=== PATIENT | female | born 1935 | race Caucasian/White ===

== ENCOUNTER 2016-03-13 23:08 | Inpatient (IN) | payer MEDICARE, OTHER ==
[~2016-03-13] VITALS: Ht 167.6 cm; Wt 64.4 kg
[~2016-03-13 23:08] MED LIST: BUSP5TAB3 PO; CALC-513 PO; CLON0.5T4 PO; CRAN1TAB3 PO; DEXT1CAP3 PO; DIGO125T PO; DILT30TA2 PO; DOCU-25 PO; DONE10TA44 PO; ERGO50003 PO; FOLI1TAB16 PO; HYDR-552 PO; LOVA20TA2 PO; MAGN400O6 PO; MEMA10TA PO; METO25TA6 PO; PANT40TA2 PO; QUET25TA PO; RIVA10TA PO
[2016-03-14 00:20] LABS: BASOPHILS % (AUTO) 0.3 % (0.0-2.0); DIFF TOTAL % 100 %; EOSINOPHILS # (AUTO) 0.1 /CMM (0.0-0.7); EOSINOPHILS % (AUTO) 1.1 % (0.0-6.0); HEMATOCRIT 51 % (33-45); HEMOGLOBIN 16.8 g/dL (11.5-14.8); LYMPHOCYTES % (AUTO) 20.1 % (20.0-44.0); MEAN CORPUSCULAR HEMOGLOBIN 32 PG (26.0-33.0); MEAN CORPUSCULAR HGB CONC 33 g/dl (31.0-36.0); MEAN CORPUSCULAR VOLUME 98 fL (82-100); MONOCYTES # (AUTO) 0.8 /CMM (0.1-1.30); MONOCYTES % (AUTO) 8.5 % (2.0-12.0); PLATELET COUNT (AUTO) 153 /CMM (150-450); RED BLOOD CELL COUNT(AUTO) 5.18 MIL/uL (4.0-5.2)
[2016-03-14 00:29] LABS: CALCIUM, SERUM 9.2 mg/dL (8.5-10.1); CREATININE 0.9 mg/dL (0.6-1.3); POTASSIUM 4.5 mmol/L (3.5-5.1)
[2016-03-14 00:37] LABS: TROPONIN I 0.024 ng/mL (0.00-0.056)
[2016-03-14 00:44] LABS: INR 1.05 (0.87-1.13); PROTHROMBIN TIME 11.3 SECS (9.5-12.7)
[2016-03-14 01:41] LABS: KETONES,URINE NEGATIVE (NEGATIVE); LEUKOCYTE ESTERASE ,URINE 1+ (NEGATIVE)
[2016-03-14 01:46] LABS: ADD UA MICROSCOPIC YES
[2016-03-14 01:47] LABS: ADD URINE CULTURE YES; RBC,URINE 0-2 /HPF (0-2)
[2016-03-14] MEDS ORDERED: CEFTRIAXONE 1GM BAG (ER ONLY) 1 GM/50 ML PIGGYBACK IV ONE (02:00)
[2016-03-14] MEDS ORDERED: RISP0.5T2 PO (02:02)
[2016-03-14] MEDS ORDERED: ATOR10TA PO (02:02)
[2016-03-14] MEDS ORDERED: LOSA25TA13 PO (02:02)
[2016-03-14] MEDS ORDERED: FAMO40TA7 PO ×2 (02:02→08:43)
[2016-03-14] MEDS ORDERED: CARV6.25 PO (02:02)
[2016-03-14] MEDS ORDERED: ASPI-991 PO (02:02)
[2016-03-14] MEDS ORDERED: CEFTRIAXONE 1GM BAG (ER ONLY) 50 ML IV ONE (02:12)
[2016-03-14] MEDS ORDERED: IV SET PRIMARY 1 EA INFUS.SET MC ONE (02:12)
[2016-03-14] MEDS ORDERED: IV NS 0.9% 1,000 ML BAG IV SCH (04:00)
[2016-03-14] MEDS ORDERED: LEVOFLOXACIN 750 MG /D5W 150ML 750 MG in PREMIX 1 EA IV SCH (04:00)
[2016-03-14 04:14] VITALS: BP 159/75
[2016-03-14] MEDS ORDERED: LEVOFLOXACIN 750 MG /D5W 150ML 150 ML IV ONE (04:52)
[2016-03-14] MEDS ORDERED: IV SET PRIMARY PUMP SET 1 EA INFUS.SET MC ONE (05:00)
[2016-03-14] MEDS ORDERED: IV NS 0.9% 1,000 ML ONE (05:00)
[2016-03-14] MEDS ORDERED: SECONDARY IV SET 1 EA INFUS.SET MC ONE ×2 (05:00→10:52)
[2016-03-14 06:56] VITALS: BP 115/81
[2016-03-14 07:04] LABS: CALCIUM, SERUM 8.9 mg/dL (8.5-10.1); CREATININE 0.8 mg/dL (0.6-1.3); PHOSPHORUS 4.3 mg/dL (2.5-4.9); POTASSIUM 3.8 mmol/L (3.5-5.1)
[2016-03-14 07:15] LABS: BASOPHILS % (AUTO) 0.5 % (0.0-2.0); EOSINOPHILS # (AUTO) 0.1 /CMM (0.0-0.7); EOSINOPHILS % (AUTO) 1.2 % (0.0-6.0); HEMATOCRIT 49 % (33-45); HEMOGLOBIN 16.2 g/dL (11.5-14.8); LYMPHOCYTES % (AUTO) 24.1 % (20.0-44.0); MEAN CORPUSCULAR HEMOGLOBIN 32 PG (26.0-33.0); MEAN CORPUSCULAR HGB CONC 33 g/dl (31.0-36.0); MEAN CORPUSCULAR VOLUME 99 fL (82-100); MONOCYTES # (AUTO) 0.9 /CMM (0.1-1.30); MONOCYTES % (AUTO) 10.7 % (2.0-12.0); NEUTROPHILS # (AUTO) 5.3 /CMM (1.8-8.9); NEUTROPHILS % (AUTO) 63.5 % (43.0-81.0); PLATELET COUNT (AUTO) 133 /CMM (150-450); RED BLOOD CELL COUNT(AUTO) 4.99 MIL/uL (4.0-5.2); WHITE BLOOD COUNT (AUTO) 8.3 K/uL (4.3-11.0)
[2016-03-14 08:00] VITALS: BP 136/98
[2016-03-14] MEDS ORDERED: RISP0.2515 PO (08:43)
[2016-03-14] MEDS ORDERED: Z GUARD REMEDY 2 OZ OINT TP PRN (09:00)
[2016-03-14] MEDS: PANTOPRAZOLE 40 MG TABLET.DR PO SCH (09:14)
[2016-03-14] MEDS: IV NS 0.9% 1,000 ML IV PRN (09:24)
[2016-03-14] MEDS: DOCUSATE SODIUM 100 MG CAPSULE PO SCH ×2 (09:54→16:03)
[2016-03-14] MEDS: CARVEDILOL 6.25 MG TABLET PO SCH ×2 (09:54→16:03)
[2016-03-14] MEDS: busPIRone 5 MG TABLET PO SCH ×2 (09:54→16:04)
[2016-03-14] MEDS: FOLIC ACID 1 MG TABLET PO SCH (09:54)
[2016-03-14] MEDS: clonazePAM 0.5 MG TABLET PO SCH ×3 (09:54→17:19)
[2016-03-14] MEDS: LOSARTAN POTASSIUM 25 MG TABLET PO SCH (09:54)
[2016-03-14] MEDS ORDERED: ASPIRIN EC 81 MG TABLET.DR PO SCH (10:00)
[2016-03-14] MEDS: MEMANTINE HCL 5 MG TABLET PO SCH ×2 (10:16→16:04)
[2016-03-14] MEDS: risperiDONE 0.25 MG TABLET PO SCH ×3 (10:16→17:19)
[2016-03-14] MEDS ORDERED: ONDANSETRON HCL/PF 4 MG/2 ML VIAL IV PRN (10:30)
[2016-03-14] MEDS ORDERED: ACETAMINOPHEN 325 MG TABLET PO PRN (10:30)
[2016-03-14] MEDS ORDERED: HYDROCODONE/APAP 5/325MG 1 EACH TABLET PO PRN (10:30)
[2016-03-14] MEDS: Magnesium 1GM/D5W 100ML PREMIX 100 ML IV SCH ×2 (10:55→12:02)
[2016-03-14] MEDS: ASPIRIN EC 81 MG TABLET.DR PO SCH (11:35)
[2016-03-14] MEDS: ENOXAPARIN SODIUM 40 MG/0.4 ML DISP.SYRIN SQ SCH (11:35)
[2016-03-14 12:00] VITALS: BP 145/69
[2016-03-14] MEDS: DIGOXIN 0.125 MG TABLET PO SCH (13:11)
[2016-03-14 16:00] VITALS: BP 139/84
[2016-03-14 20:00] VITALS: BP 145/93
[2016-03-14] MEDS: DONEPEZIL 5 MG TABLET PO SCH (21:32)
[2016-03-14] MEDS: ATORVASTATIN 10 MG TABLET PO SCH (21:32)
[2016-03-15] VITALS: BP 140/76
[2016-03-15] MEDS: IV NS 0.9% 1,000 ML IV PRN (01:01)
[2016-03-15 04:02] VITALS: BP 140/76
[2016-03-15] MEDS: CEFTRIAXONE 1 G in IV D5W 50 ML IV SCH (04:54)
[2016-03-15 08:00] VITALS: BP 144/78
[2016-03-15 08:29] LABS: BASOPHILS % (AUTO) 0.3 % (0.0-2.0); DIFF TOTAL % 100 %; EOSINOPHILS # (AUTO) 0.1 /CMM (0.0-0.7); EOSINOPHILS % (AUTO) 1.5 % (0.0-6.0); HEMATOCRIT 45 % (33-45); HEMOGLOBIN 14.7 g/dL (11.5-14.8); LYMPHOCYTES # (AUTO) 1.7 /CMM (0.8-4.8); LYMPHOCYTES % (AUTO) 25.1 % (20.0-44.0); MEAN CORPUSCULAR HEMOGLOBIN 32 PG (26.0-33.0); MEAN CORPUSCULAR HGB CONC 33 g/dl (31.0-36.0); MEAN CORPUSCULAR VOLUME 98 fL (82-100); MONOCYTES # (AUTO) 0.7 /CMM (0.1-1.30); MONOCYTES % (AUTO) 9.8 % (2.0-12.0); NEUTROPHILS # (AUTO) 4.2 /CMM (1.8-8.9); NEUTROPHILS % (AUTO) 63.3 % (43.0-81.0); PLATELET COUNT (AUTO) 141 /CMM (150-450); RED BLOOD CELL COUNT(AUTO) 4.55 MIL/uL (4.0-5.2); WHITE BLOOD COUNT (AUTO) 6.7 K/uL (4.3-11.0)
[2016-03-15 08:33] LABS: CALCIUM, SERUM 8.7 mg/dL (8.5-10.1); CREATININE 0.9 mg/dL (0.6-1.3); POTASSIUM 3.9 mmol/L (3.5-5.1)
[2016-03-15] MEDS: busPIRone 5 MG TABLET PO SCH ×2 (09:51→17:19)
[2016-03-15] MEDS: LOSARTAN POTASSIUM 25 MG TABLET PO SCH (09:51)
[2016-03-15] MEDS: DOCUSATE SODIUM 100 MG CAPSULE PO SCH ×2 (09:52→17:19)
[2016-03-15] MEDS: CARVEDILOL 6.25 MG TABLET PO SCH ×2 (09:52→17:19)
[2016-03-15] MEDS: ASPIRIN EC 81 MG TABLET.DR PO SCH (09:52)
[2016-03-15] MEDS: clonazePAM 0.5 MG TABLET PO SCH ×3 (09:52→17:19)
[2016-03-15] MEDS: FOLIC ACID 1 MG TABLET PO SCH (09:52)
[2016-03-15] MEDS: MEMANTINE HCL 5 MG TABLET PO SCH ×2 (09:52→17:19)
[2016-03-15] MEDS: PANTOPRAZOLE 40 MG TABLET.DR PO SCH (09:52)
[2016-03-15] MEDS: risperiDONE 0.25 MG TABLET PO SCH ×3 (09:52→17:19)
[2016-03-15] MEDS: ENOXAPARIN SODIUM 40 MG/0.4 ML DISP.SYRIN SQ SCH (10:00)
[2016-03-15] MEDS ORDERED: SECONDARY IV SET 1 EA INFUS.SET MC ONE (13:48)
[2016-03-15] MEDS: Magnesium 1GM/D5W 100ML PREMIX 100 ML IV SCH ×2 (13:50→14:54)
[2016-03-15] MEDS: DIGOXIN 0.125 MG TABLET PO SCH (13:53)
[2016-03-15] MEDS ORDERED: Z GUARD REMEDY 2 OZ OINT TP PRN (14:30)
[2016-03-15 16:00] VITALS: BP 113/80
[2016-03-15] MEDS: Z GUARD REMEDY 2 OZ OINT TP SCH (17:20)
[2016-03-15 20:00] VITALS: BP 122/83
[2016-03-15] MEDS: ATORVASTATIN 10 MG TABLET PO SCH (21:10)
[2016-03-15] MEDS: DONEPEZIL 5 MG TABLET PO SCH (21:10)
[2016-03-16] MEDS: LEVOFLOXACIN 750 MG /D5W 150ML 750 MG in PREMIX 1 EA IV SCH (03:21)
[2016-03-16] MEDS: CEFTRIAXONE 1 G in IV D5W 50 ML IV SCH (05:02)
[2016-03-16 06:33] LABS: BASOPHILS % (AUTO) 0.6 % (0.0-2.0); DIFF TOTAL % 100 %; EOSINOPHILS # (AUTO) 0.1 /CMM (0.0-0.7); EOSINOPHILS % (AUTO) 1.8 % (0.0-6.0); HEMATOCRIT 42 % (33-45); HEMOGLOBIN 13.6 g/dL (11.5-14.8); LYMPHOCYTES # (AUTO) 1.7 /CMM (0.8-4.8); MEAN CORPUSCULAR HEMOGLOBIN 32 PG (26.0-33.0); MEAN CORPUSCULAR HGB CONC 33 g/dl (31.0-36.0); MEAN CORPUSCULAR VOLUME 98 fL (82-100); MONOCYTES # (AUTO) 0.8 /CMM (0.1-1.30); MONOCYTES % (AUTO) 11.9 % (2.0-12.0); NEUTROPHILS # (AUTO) 4.1 /CMM (1.8-8.9); NEUTROPHILS % (AUTO) 60.7 % (43.0-81.0); PLATELET COUNT (AUTO) 135 /CMM (150-450); RED BLOOD CELL COUNT(AUTO) 4.24 MIL/uL (4.0-5.2); WHITE BLOOD COUNT (AUTO) 6.7 K/uL (4.3-11.0)
[2016-03-16 07:27] LABS: CALCIUM, SERUM 8.1 mg/dL (8.5-10.1); CREATININE 0.9 mg/dL (0.6-1.3)
[2016-03-16 08:00] VITALS: BP 129/87
[2016-03-16] MEDS: risperiDONE 0.25 MG TABLET PO SCH ×4 (08:38→18:00)
[2016-03-16] MEDS: clonazePAM 0.5 MG TABLET PO SCH ×4 (08:38→17:59)
[2016-03-16] MEDS: PANTOPRAZOLE 40 MG TABLET.DR PO SCH (08:39)
[2016-03-16] MEDS: DOCUSATE SODIUM 100 MG CAPSULE PO SCH ×3 (08:39→17:59)
[2016-03-16] MEDS: busPIRone 5 MG TABLET PO SCH ×3 (08:39→17:59)
[2016-03-16] MEDS: LOSARTAN POTASSIUM 25 MG TABLET PO SCH (08:39)
[2016-03-16] MEDS: MEMANTINE HCL 5 MG TABLET PO SCH ×3 (08:40→17:59)
[2016-03-16] MEDS: CARVEDILOL 6.25 MG TABLET PO SCH ×3 (08:40→17:59)
[2016-03-16] MEDS: ASPIRIN EC 81 MG TABLET.DR PO SCH (08:40)
[2016-03-16] MEDS: FOLIC ACID 1 MG TABLET PO SCH (08:40)
[2016-03-16] MEDS: ENOXAPARIN SODIUM 40 MG/0.4 ML DISP.SYRIN SQ SCH (08:41)
[2016-03-16] MEDS: Z GUARD REMEDY 2 OZ OINT TP SCH ×2 (08:43→18:00)
[2016-03-16] MEDS ORDERED: SECONDARY IV SET 1 EA INFUS.SET MC ONE (12:57)
[2016-03-16] MEDS: Magnesium 1GM/D5W 100ML PREMIX 100 ML IV SCH ×2 (13:04→14:32)
[2016-03-16] MEDS: DIGOXIN 0.125 MG TABLET PO SCH (13:28)
[2016-03-16 16:00] VITALS: BP 127/75
[2016-03-16] MEDS: LACTOBACILLUS RHAMNOSUS GG 1 EACH CAP.SPRINK PO SCH ×2 (17:00→17:59)
[2016-03-16 20:00] VITALS: BP 149/82
[2016-03-16] MEDS: ATORVASTATIN 10 MG TABLET PO SCH (22:04)
[2016-03-16] MEDS: DONEPEZIL 5 MG TABLET PO SCH (22:04)
[2016-03-17 03:30] VITALS: BP 135/80
[2016-03-17] MEDS: CEFTRIAXONE 1 G in IV D5W 50 ML IV SCH (04:53)
[2016-03-17 06:51] LABS: BASOPHILS % (AUTO) 0.6 % (0.0-2.0); DIFF TOTAL % 100 %; EOSINOPHILS # (AUTO) 0.1 /CMM (0.0-0.7); EOSINOPHILS % (AUTO) 2.3 % (0.0-6.0); HEMATOCRIT 45 % (33-45); HEMOGLOBIN 14.9 g/dL (11.5-14.8); LYMPHOCYTES # (AUTO) 2.3 /CMM (0.8-4.8); LYMPHOCYTES % (AUTO) 35.6 % (20.0-44.0); MEAN CORPUSCULAR HEMOGLOBIN 32 PG (26.0-33.0); MEAN CORPUSCULAR HGB CONC 33 g/dl (31.0-36.0); MEAN CORPUSCULAR VOLUME 99 fL (82-100); MONOCYTES # (AUTO) 0.6 /CMM (0.1-1.30); MONOCYTES % (AUTO) 9.9 % (2.0-12.0); NEUTROPHILS # (AUTO) 3.3 /CMM (1.8-8.9); NEUTROPHILS % (AUTO) 51.6 % (43.0-81.0); PLATELET COUNT (AUTO) 142 /CMM (150-450); RED BLOOD CELL COUNT(AUTO) 4.61 MIL/uL (4.0-5.2); WHITE BLOOD COUNT (AUTO) 6.3 K/uL (4.3-11.0)
[2016-03-17 08:00] VITALS: BP 151/77
[2016-03-17] MEDS: PANTOPRAZOLE 40 MG TABLET.DR PO SCH (08:32)
[2016-03-17] MEDS: FOLIC ACID 1 MG TABLET PO SCH (08:32)
[2016-03-17] MEDS: clonazePAM 0.5 MG TABLET PO SCH ×3 (08:32→16:06)
[2016-03-17] MEDS: LOSARTAN POTASSIUM 25 MG TABLET PO SCH (08:32)
[2016-03-17] MEDS: ASPIRIN EC 81 MG TABLET.DR PO SCH (08:32)
[2016-03-17] MEDS: DOCUSATE SODIUM 100 MG CAPSULE PO SCH ×2 (08:32→16:05)
[2016-03-17] MEDS: risperiDONE 0.25 MG TABLET PO SCH ×3 (08:32→16:06)
[2016-03-17] MEDS: MEMANTINE HCL 5 MG TABLET PO SCH ×2 (08:32→16:05)
[2016-03-17] MEDS: LACTOBACILLUS RHAMNOSUS GG 1 EACH CAP.SPRINK PO SCH ×2 (08:32→16:06)
[2016-03-17] MEDS: busPIRone 5 MG TABLET PO SCH ×2 (08:32→16:06)
[2016-03-17] MEDS: CARVEDILOL 6.25 MG TABLET PO SCH ×2 (08:33→16:06)
[2016-03-17] MEDS: ENOXAPARIN SODIUM 40 MG/0.4 ML DISP.SYRIN SQ SCH (08:33)
[2016-03-17] MEDS: Z GUARD REMEDY 2 OZ OINT TP SCH ×2 (08:34→16:06)
[2016-03-17 09:10] LABS: CALCIUM, SERUM 8.7 mg/dL (8.5-10.1); CREATININE 0.9 mg/dL (0.6-1.3); PHOSPHORUS 4.1 mg/dL (2.5-4.9); POTASSIUM 3.9 mmol/L (3.5-5.1)
[2016-03-17] MEDS: DIGOXIN 0.125 MG TABLET PO SCH (12:11)
[2016-03-17 14:50] VITALS: BP 151/77
[2016-03-17 16:00] VITALS: BP 153/78
[2016-03-17 20:00] VITALS: BP_SYST 153; BP_SYST 159; BP_DIAS 83; BP_DIAS 99
[2016-03-17] MEDS: DONEPEZIL 5 MG TABLET PO SCH (21:20)
[2016-03-17] MEDS: ATORVASTATIN 10 MG TABLET PO SCH (21:20)
[2016-03-18] MEDS: CEFTRIAXONE 1 G in IV D5W 50 ML IV SCH (04:34)
[2016-03-18] MEDS: LEVOFLOXACIN 750 MG /D5W 150ML 750 MG in PREMIX 1 EA IV SCH (06:33)
[2016-03-18 07:20] LABS: BASOPHILS % (AUTO) 0.7 % (0.0-2.0); DIFF TOTAL % 100 %; EOSINOPHILS # (AUTO) 0.2 /CMM (0.0-0.7); EOSINOPHILS % (AUTO) 3.2 % (0.0-6.0); HEMATOCRIT 44 % (33-45); HEMOGLOBIN 14.5 g/dL (11.5-14.8); LYMPHOCYTES # (AUTO) 2.1 /CMM (0.8-4.8); LYMPHOCYTES % (AUTO) 31.2 % (20.0-44.0); MEAN CORPUSCULAR HEMOGLOBIN 33 PG (26.0-33.0); MEAN CORPUSCULAR HGB CONC 33 g/dl (31.0-36.0); MEAN CORPUSCULAR VOLUME 98 fL (82-100); MONOCYTES # (AUTO) 0.7 /CMM (0.1-1.30); MONOCYTES % (AUTO) 10.8 % (2.0-12.0); NEUTROPHILS # (AUTO) 3.6 /CMM (1.8-8.9); NEUTROPHILS % (AUTO) 54.1 % (43.0-81.0); PLATELET COUNT (AUTO) 125 /CMM (150-450); RED BLOOD CELL COUNT(AUTO) 4.45 MIL/uL (4.0-5.2); WHITE BLOOD COUNT (AUTO) 6.7 K/uL (4.3-11.0)
[2016-03-18 08:00] VITALS: BP 155/83
[2016-03-18 08:00] LABS: CALCIUM, SERUM 8.5 mg/dL (8.5-10.1); CREATININE 0.8 mg/dL (0.6-1.3); PHOSPHORUS 3.8 mg/dL (2.5-4.9); POTASSIUM 4.1 mmol/L (3.5-5.1)
[2016-03-18] MEDS: ENOXAPARIN SODIUM 40 MG/0.4 ML DISP.SYRIN SQ SCH (08:54)
[2016-03-18] MEDS: PANTOPRAZOLE 40 MG TABLET.DR PO SCH (08:55)
[2016-03-18] MEDS: FOLIC ACID 1 MG TABLET PO SCH (08:55)
[2016-03-18] MEDS: clonazePAM 0.5 MG TABLET PO SCH ×2 (08:55→12:18)
[2016-03-18] MEDS: MEMANTINE HCL 5 MG TABLET PO SCH (08:55)
[2016-03-18] MEDS: LACTOBACILLUS RHAMNOSUS GG 1 EACH CAP.SPRINK PO SCH (08:55)
[2016-03-18] MEDS: risperiDONE 0.25 MG TABLET PO SCH ×2 (08:55→12:17)
[2016-03-18] MEDS: ASPIRIN EC 81 MG TABLET.DR PO SCH (08:55)
[2016-03-18] MEDS: DOCUSATE SODIUM 100 MG CAPSULE PO SCH (08:55)
[2016-03-18] MEDS: busPIRone 5 MG TABLET PO SCH (08:55)
[2016-03-18 08:56] VITALS: BP 155/83
[2016-03-18] MEDS: CARVEDILOL 6.25 MG TABLET PO SCH (08:56)
[2016-03-18] MEDS: LOSARTAN POTASSIUM 25 MG TABLET PO SCH (08:56)
[2016-03-18] MEDS: Z GUARD REMEDY 2 OZ OINT TP SCH (08:56)
[2016-03-18] MEDS: Magnesium 1GM/D5W 100ML PREMIX 100 ML IV SCH ×2 (11:11→12:15)
[2016-03-18] MEDS: DIGOXIN 0.125 MG TABLET PO SCH (12:18)
[2016-03-19] MEDS ORDERED: LEVOFLOXACIN (750 MG) 750 MG TABLET PO SCH (09:00)
== END 2016-03-18 15:20 | DRG 193 ==
LOC: ER 23:10 → TELE 03-14 03:27 → TELE-TD 03-14 03:46 → TELE 03-14 04:00 → MED 03-15 10:45
PROVIDERS: ADMIT Legal Medicine; ATTEND Legal Medicine
DX: J15.9 Unspecified bacterial pneumonia (principal); G93.40 Encephalopathy, unspecified; N39.0 Urinary tract infection, site not specified; K21.9 Gastro-esophageal reflux disease without esophagitis; F03.90 Unspecified dementia, unspecified severity, without behavioral disturbance, psychotic disturbance, mood disturbance, and anxiety; G40.909 Epilepsy, unspecified, not intractable, without status epilepticus; I48.91 Unspecified atrial fibrillation; I25.10 Atherosclerotic heart disease of native coronary artery without angina pectoris; I10 Essential (primary) hypertension; B96.20 Unspecified Escherichia coli [E. coli] as the cause of diseases classified elsewhere; D69.6 Thrombocytopenia, unspecified; M19.90 Unspecified osteoarthritis, unspecified site
CPT/HCPCS: 36415; 70450-TC; 71010-TC; 80048-TC; 80162-TC; 81000-TC; 82962-TC; 83735-TC; 84100-TC; 84484-TC; 85025-TC; 85730-TC; 87040-TC; 87081-TC; 87086-TC; 87186-TC; 94799-TC; 97001-TC; 97110-TC; 97530-TC; A4216; A4606; J0696; J1650; J1956; J3475; J7030; J7060; Z7610

== ENCOUNTER 2016-03-20 12:23 | Inpatient (IN) | payer MEDICARE, OTHER ==
[~2016-03-20] VITALS: Ht 162.6 cm; Wt 63.5 kg
[~2016-03-20 12:23] MED LIST changes: +ASPI-991 PO; +ATOR10TA PO; -CALC-513 PO; +CARV6.25 PO; -CRAN1TAB3 PO; -DEXT1CAP3 PO; -DILT30TA2 PO; -ERGO50003 PO; -HYDR-552 PO; +LOSA25TA13 PO; -LOVA20TA2 PO; -MAGN400O6 PO; -METO25TA6 PO; -PANT40TA2 PO; -QUET25TA PO; +RISP0.2515 PO; -RIVA10TA PO
[2016-03-20] MEDS ORDERED: IV NS 0.9% 500 ML IV ONE (12:46)
[2016-03-20] MEDS ORDERED: IV SET PRIMARY 1 EA INFUS.SET MC ONE (12:46)
[2016-03-20] MEDS ORDERED: IV NS 0.9% 500 ML BAG IV ONE (13:00)
[2016-03-20 13:17] LABS: BASOPHILS # (AUTO) 0.1 /CMM (0.0-0.2); BASOPHILS % (AUTO) 0.9 % (0.0-2.0); DIFF TOTAL % 100 %; EOSINOPHILS # (AUTO) 0.2 /CMM (0.0-0.7); EOSINOPHILS % (AUTO) 2.6 % (0.0-6.0); HEMATOCRIT 48 % (33-45); LYMPHOCYTES % (AUTO) 24.9 % (20.0-44.0); MEAN CORPUSCULAR HEMOGLOBIN 33 PG (26.0-33.0); MEAN CORPUSCULAR HGB CONC 33 g/dl (31.0-36.0); MEAN CORPUSCULAR VOLUME 98 fL (82-100); MONOCYTES # (AUTO) 0.6 /CMM (0.1-1.30); MONOCYTES % (AUTO) 8.1 % (2.0-12.0); NEUTROPHILS % (AUTO) 63.5 % (43.0-81.0); PLATELET COUNT (AUTO) 162 /CMM (150-450); RED BLOOD CELL COUNT(AUTO) 4.91 MIL/uL (4.0-5.2); WHITE BLOOD COUNT (AUTO) 7.9 K/uL (4.3-11.0)
[2016-03-20 13:27] LABS: ANION GAP 13 (5-14); CALCIUM, SERUM 9.3 mg/dL (8.5-10.1); CARBON DIOXIDE 26 mmol/L (21-32); CHLORIDE 107 mmol/L (98-107); CREATININE 0.8 mg/dL (0.6-1.3); GLUCOSE 91 mg/dL (74-106); POTASSIUM 4.7 mmol/L (3.5-5.1); SODIUM SERUM 141 mmol/L (136-145); UREA NITROGEN, BLOOD 20 mg/dL (7-18)
[2016-03-20 13:41] LABS: ALANINE AMINOTRANSFERASE 17 U/L (12-78); ALBUMIN 3.3 g/dL (3.4-5.0); ASPARTATE AMINOTRANSFERASE 27 U/L (15-37); BILIRUBIN,DIRECT 0.1 mg/dL (0.0-0.2); BILIRUBIN,TOTAL 0.4 mg/dL (0.2-1.0); THYROID STIMULATING HORMONE 1.576 uIU/mL (0.358-3.74); TROPONIN I < 0.017 ng/mL (0.00-0.056)
[2016-03-20 13:43] LABS: INDIRECT BILIRUBIN 0.3 mg/dL (0.0-1.1)
[2016-03-20] MEDS ORDERED: RISP0.5T20 PO (13:51)
[2016-03-20] MEDS ORDERED: FAMO40TA7 PO (13:51)
[2016-03-20] MEDS ORDERED: QUET25TA PO (14:00)
[2016-03-20] MEDS ORDERED: LORA1TAB82 PO (14:00)
[2016-03-20] MEDS ORDERED: ASPIRIN 81 MG TAB.CHEW ONE (14:12)
[2016-03-20] MEDS: ASPIRIN 81 MG TAB.CHEW PO ONE ×2 (14:16→14:22)
[2016-03-20 14:20] LABS: KETONES,URINE NEGATIVE (NEGATIVE); LEUKOCYTE ESTERASE ,URINE NEGATIVE (NEGATIVE)
[2016-03-20 14:24] LABS: ADD UA MICROSCOPIC YES
[2016-03-20] MEDS ORDERED: ACETAMINOPHEN 325 MG TABLET PO PRN (15:00)
[2016-03-20] MEDS ORDERED: ONDANSETRON 4 MG TAB.RAPDIS PO PRN (15:00)
[2016-03-20 15:03] VITALS: BP 167/99
[2016-03-20 15:17] LABS: ADD URINE CULTURE NO; RBC,URINE 0-2 /HPF (0-2); WBC,URINE 0-2 /HPF (0-3)
[2016-03-20] MEDS ORDERED: IV SET PRIMARY PUMP SET 1 EA INFUS.SET MC ONE (15:42)
[2016-03-20] MEDS: IV NS 0.9% 1,000 ML IV PRN (15:48)
[2016-03-20 16:00] VITALS: BP 147/68
[2016-03-20 16:12] VITALS: BP 147/68
[2016-03-20] MEDS: Z GUARD REMEDY 2 OZ OINT TP SCH (16:56)
[2016-03-20 20:00] VITALS: BP 175/98
[2016-03-21] VITALS (7 sets, daily range): BP systolic 119–160; BP diastolic 74–98
[2016-03-21] MEDS: IV NS 0.9% 1,000 ML IV PRN (05:18)
[2016-03-21 07:27] LABS: BASOPHILS % (AUTO) 0.6 % (0.0-2.0); DIFF TOTAL % 100 %; EOSINOPHILS # (AUTO) 0.2 /CMM (0.0-0.7); HEMATOCRIT 46 % (33-45); HEMOGLOBIN 15.1 g/dL (11.5-14.8); LYMPHOCYTES # (AUTO) 1.9 /CMM (0.8-4.8); LYMPHOCYTES % (AUTO) 34.4 % (20.0-44.0); MEAN CORPUSCULAR HEMOGLOBIN 33 PG (26.0-33.0); MEAN CORPUSCULAR HGB CONC 33 g/dl (31.0-36.0); MEAN CORPUSCULAR VOLUME 99 fL (82-100); MONOCYTES # (AUTO) 0.5 /CMM (0.1-1.30); MONOCYTES % (AUTO) 8.5 % (2.0-12.0); NEUTROPHILS % (AUTO) 53.5 % (43.0-81.0); PLATELET COUNT (AUTO) 153 /CMM (150-450); RED BLOOD CELL COUNT(AUTO) 4.67 MIL/uL (4.0-5.2); WHITE BLOOD COUNT (AUTO) 5.6 K/uL (4.3-11.0)
[2016-03-21 07:37] LABS: CALCIUM, SERUM 8.8 mg/dL (8.5-10.1); CREATININE 0.8 mg/dL (0.6-1.3); POTASSIUM 4.2 mmol/L (3.5-5.1)
[2016-03-21 08:09] LABS: CHOLESTEROL 144 mg/dL (<200); HDL CHOLESTEROL 37 mg/dL (40-60); LDL 95 mg/dL (0-99); TRIGLYCERIDES 93 mg/dL (30-150)
[2016-03-21] MEDS: ASPIRIN 81 MG TAB.CHEW PO SCH (08:30)
[2016-03-21] MEDS: PANTOPRAZOLE 40 MG TABLET.DR PO SCH (08:30)
[2016-03-21] MEDS: Z GUARD REMEDY 2 OZ OINT TP SCH ×2 (08:33→16:09)
[2016-03-21] MEDS ORDERED: Z GUARD REMEDY 2 OZ OINT TP PRN (09:30)
[2016-03-21] MEDS ORDERED: SIMVASTATIN 10 MG TABLET PO SCH (22:00)
[2016-03-22 00:26] VITALS: BP_SYST 139; BP_SYST 149; BP_DIAS 86; BP_DIAS 92
[2016-03-22] MEDS: IV NS 0.9% 1,000 ML IV PRN (01:58)
[2016-03-22 06:44] VITALS: BP 162/99
[2016-03-22 08:00] VITALS: BP 102/99
[2016-03-22] MEDS: PANTOPRAZOLE 40 MG TABLET.DR PO SCH (09:00)
[2016-03-22] MEDS: ASPIRIN 81 MG TAB.CHEW PO SCH (09:00)
[2016-03-22] MEDS: Z GUARD REMEDY 2 OZ OINT TP SCH (09:32)
== END 2016-03-22 14:30 | DRG 69 ==
LOC: ER 12:28 → TELE 14:02 → MED 03-22 10:03
PROVIDERS: ADMIT Legal Medicine; ATTEND Legal Medicine
DX: G45.9 Transient cerebral ischemic attack, unspecified (principal); G93.40 Encephalopathy, unspecified; F03.90 Unspecified dementia, unspecified severity, without behavioral disturbance, psychotic disturbance, mood disturbance, and anxiety; I10 Essential (primary) hypertension; K21.9 Gastro-esophageal reflux disease without esophagitis; E78.5 Hyperlipidemia, unspecified; Z79.899 Other long term (current) drug therapy; R56.9 Unspecified convulsions; F29 Unspecified psychosis not due to a substance or known physiological condition; I48.91 Unspecified atrial fibrillation
CPT/HCPCS: 36415; 70450-TC; 70551-TC; 71010-TC; 80048-TC; 80061-TC; 80076-TC; 80162-TC; 81000-TC; 84443-TC; 84484-TC; 85025-TC; 87081-TC; 93307-TC; 93880-TC; A4606; J7030; J7040; Z7610

== ENCOUNTER 2016-04-30 21:26 | Inpatient (IN) | payer MEDICARE, OTHER ==
[~2016-04-30] VITALS: Ht 167.6 cm; Wt 60.8 kg
[~2016-04-30 21:26] MED LIST changes: +FAMO40TA7 PO; +LORA1TAB82 PO; +QUET25TA PO; -RISP0.2515 PO; +RISP0.5T20 PO
--- NOTE | 2016-04-30 21:35 | NUR ---
MANUELITO GRIMALDO FROM [facility] FOR AMS. PT ARRIVED ON NRB MASK. PT WENT TO BED #6 AND WAS PLACED ON THE MONITOR. PT IS 95% ON RA. DR. GARCIA IS A THE BEDSIDE.
--- NOTE | 2016-04-30 21:59 | NUR ---
PT LEFT FOR CT.
[2016-04-30 22:00] LABS: BASOPHILS % (AUTO) 0.5 % (0.0-2.0); EOSINOPHILS # (AUTO) 0.2 /CMM (0.0-0.7); HEMATOCRIT 48 % (33-45); HEMOGLOBIN 15.7 g/dL (11.5-14.8); LYMPHOCYTES # (AUTO) 2.9 /CMM (0.8-4.8); LYMPHOCYTES % (AUTO) 33.3 % (20.0-44.0); MEAN CORPUSCULAR HEMOGLOBIN 32 PG (26.0-33.0); MEAN CORPUSCULAR HGB CONC 33 g/dl (31.0-36.0); MEAN CORPUSCULAR VOLUME 98 fL (82-100); MONOCYTES # (AUTO) 0.8 /CMM (0.1-1.30); MONOCYTES % (AUTO) 9.3 % (2.0-12.0); NEUTROPHILS # (AUTO) 4.7 /CMM (1.8-8.9); NEUTROPHILS % (AUTO) 54.9 % (43.0-81.0); PLATELET COUNT (AUTO) 155 /CMM (150-450); RDW COEFFICIENT OF VARIATION 14.5 (11.5-15.0); RED BLOOD CELL COUNT(AUTO) 4.88 MIL/uL (4.0-5.2); WHITE BLOOD COUNT (AUTO) 8.6 K/uL (4.3-11.0)
[2016-04-30 22:09] LABS: CALCIUM, SERUM 8.5 mg/dL (8.5-10.1); CREATININE 0.8 mg/dL (0.6-1.3); POTASSIUM 3.8 mmol/L (3.5-5.1)
--- NOTE | 2016-04-30 22:10 | NUR ---
PT RETURNED FROM CT.
--- NOTE | 2016-04-30 22:10 | NUR ---
IN AND OUT CATH DONE. URINE SAMPLE OBTAINED AND LAB CALLED FOR P/U. PT WAS CLEANED AND NEW DIAPER APPLIED. PT HAD SMALL BM.
[2016-04-30 22:17] LABS: LACTIC ACID 1.2 mmol/L (0.4-2.0)
[2016-04-30 22:22] LABS: THYROID STIMULATING HORMONE 3.22 uIU/mL (0.358-3.74)
--- NOTE | 2016-04-30 22:22 | NUR ---
LAB AT THE BEDSIDE FOR DRAW.
[2016-04-30 22:26] LABS: ALBUMIN 2.8 g/dL (3.4-5.0); BILIRUBIN,DIRECT 0.1 mg/dL (0.0-0.2); BILIRUBIN,TOTAL 0.6 mg/dL (0.2-1.0); INR 1.03 (0.87-1.13); PROTHROMBIN TIME 11.1 SECS (9.5-12.7); SALICYLATE 0.9 mg/dL (2.8-20.0); TOTAL PROTEIN, SERUM 6.5 g/dL (6.4-8.2); TROPONIN I 0.031 ng/mL (0.00-0.056)
[2016-04-30 22:39] LABS: APPEARANCE,URINE CLEAR (CLEAR); BILIRUBIN,URINE NEGATIVE (NEGATIVE); BLOOD, URINE NEGATIVE Ery/uL (NEGATIVE); COLOR,URINE YELLOW (YELLOW); KETONES,URINE NEGATIVE (NEGATIVE); LEUKOCYTE ESTERASE ,URINE NEGATIVE (NEGATIVE); NITRITE, URINE NEGATIVE (NEGATIVE); PROTEIN,URINE NEGATIVE (NEGATIVE); UGLUCOSE NEGATIVE (NEGATIVE); UROBILINOGEN,URINE 0.2 EU/dL (0.2)
--- NOTE | 2016-04-30 23:22 | NUR ---
CALLED DR CORTES'S EMERGENCY LINE LEFT VOICEMAIL.
--- NOTE | 2016-04-30 23:33 | NUR ---
ORDERS REC'D FROM DR. CORTES.
--- NOTE | 2016-04-30 23:50 | NUR ---
CALLING REPORT TO ERNIE ROBERTO
--- NOTE | 2016-04-30 23:50 | NUR ---
NEISHA REPORT TO MS NURSE.
[2016-05-01 00:10] VITALS: BP 155/77
[2016-05-01] MEDS ORDERED: ACETAMINOPHEN 325 MG TABLET PO PRN (00:30)
[2016-05-01] MEDS ORDERED: LORAZEPAM INJ 2 MG/ML VIAL IV PRN (00:30)
--- NOTE | 2016-05-01 00:41 | NUR ---
MS RN NOTE ADMITTED 80 YEARS OLD FEMALE PT FROM ER WITH THE DX OF WEAKNESS BY DR CORTES. A/O X 1 NAME ONLY. NO SOB, NO DISTRESS OR DISCOMFORT NOTED. NO S/S OF PAIN NOTED. PT IS CONFUSED. UNABLE TO GET ANY HISTORY FROM THE PT. H/L IN RFA # 18 G INTACT AND PATENT. VSS. ADMITTING ORDERS CHECKED. BED BATH GIVEN TO PT. SKIN INTACT. SIDE RAILS UP X 3 AND CALL LIGHT WITHIN REACH. CONTINUE TO MONITOR HER.
[2016-05-01] MEDS ORDERED: IV SET PRIMARY PUMP SET 1 EA INFUS.SET MC ONE (01:20)
[2016-05-01] MEDS ORDERED: IV D5/ 0.9% NACL 1,000 ML IV ONE (01:20)
[2016-05-01] MEDS: IV D5/ 0.9% NACL 1,000 ML IV PRN ×2 (01:25→16:14)
[2016-05-01 04:00] VITALS: BP 145/88
--- NOTE | 2016-05-01 07:02 | NUR ---
MS RN NOTE PT IN BED ASLEEP, AROUSABLE. NO DISTRESS OR DISCOMFORT NOTED. NO S/S OF PAIN NOTED. IVF INFUSING WELL, NO S/S OF INFILTRATION NOTED. SIDE RAILS UP X 2 AND CALL LIGHT WITHIN REACH. WILL ENDORSE TO DAY SHIFT NURSE FOR CONTINUE TO CARE.
--- NOTE | 2016-05-01 07:10 | NUR ---
MS RN NOTE: RECEIVED PATIENT WHILE RESTING IN BED, A/OX 1. BREATHING EVEN AND UNLABORED ON ROOM AIR. NO SOB, NO DISTRESS AT THE MOMENT. PATIENTS NEEDS ATTENDED TO, IVF RUNNING. NO COMPLICATIONS NOTED, WILL CONTINUE TO MONITOR.
[2016-05-01 07:29] LABS: BASOPHILS % (AUTO) 0.5 % (0.0-2.0); EOSINOPHILS # (AUTO) 0.1 /CMM (0.0-0.7); EOSINOPHILS % (AUTO) 1.7 % (0.0-6.0); HEMATOCRIT 46 % (33-45); HEMOGLOBIN 15.2 g/dL (11.5-14.8); LYMPHOCYTES # (AUTO) 2.1 /CMM (0.8-4.8); LYMPHOCYTES % (AUTO) 25.1 % (20.0-44.0); MEAN CORPUSCULAR HEMOGLOBIN 33 PG (26.0-33.0); MEAN CORPUSCULAR HGB CONC 33 g/dl (31.0-36.0); MEAN CORPUSCULAR VOLUME 99 fL (82-100); MONOCYTES % (AUTO) 12.4 % (2.0-12.0); NEUTROPHILS % (AUTO) 60.3 % (43.0-81.0); PLATELET COUNT (AUTO) 141 /CMM (150-450); RDW COEFFICIENT OF VARIATION 14.3 (11.5-15.0); RED BLOOD CELL COUNT(AUTO) 4.67 MIL/uL (4.0-5.2); WHITE BLOOD COUNT (AUTO) 8.4 K/uL (4.3-11.0)
[2016-05-01 07:41] LABS: CALCIUM, SERUM 8.1 mg/dL (8.5-10.1); CREATININE 0.9 mg/dL (0.6-1.3); MAGNESIUM 1.5 mg/dL (1.8-2.4); PHOSPHORUS 3.7 mg/dL (2.5-4.9); POTASSIUM 3.8 mmol/L (3.5-5.1)
[2016-05-01 08:00] VITALS: BP_SYST 125; BP_SYST 148; BP_DIAS 50; BP_DIAS 87
[2016-05-01] MEDS: ASPIRIN 81 MG TAB.CHEW PO SCH (08:42)
[2016-05-01] MEDS: ENOXAPARIN SODIUM 30 MG/0.3 ML DISP.SYRIN SQ SCH (08:49)
[2016-05-01] MEDS ORDERED: Z GUARD REMEDY 4 OZ OINT TP PRN (11:00)
[2016-05-01] MEDS ORDERED: Z GUARD REMEDY 2 OZ OINT TP PRN (11:00)
[2016-05-01] MEDS ORDERED: MAGNESIUM OXIDE 400 MG TABLET PO ONE (11:30)
--- NOTE | 2016-05-01 11:59 | NUR ---
WOUND CARE CONSULT: PT SEEN FOR SKIN ASSESSMENT PER NURSING STAFF REQUEST. PT INCONTINENT AND IMMOBILE AT THIS TIME. BLANCHING REDNESS NOTED TO SACRAL AREA. PT ON ALEJANDRA ISOFLEX LOW AIRLOSS BED. PT TO BE TURNED AND REPOSITIONED EVERY 2 HRS PT CONDITION PERMITS. HEELS TO BE FLOATED. Z GUARD TO BE USED FOR BUTTOCK/PERINEAL PROTECTION. DISCUSSED WITH NURSING STAFF. WILL SEE PRN. PÉREZ IN AGREEMENT WITH PLAN OF CARE. Addendum: 05/01/16 at 1202 by LIVAN YORK WNDNU Amended: Links added.
--- NOTE | 2016-05-01 13:00 | NUR ---
MS RN NOTE: DR. CORTES CONSULTED PATIENT, PATIENT REMAINS STABLE. MED RECON TO BE COMPLETED, WILL CONTINUE TO MONITOR.
[2016-05-01] MEDS ORDERED: FAMOTIDINE 40 MG TABLET PO SCH (14:30)
[2016-05-01] MEDS ORDERED: LORAZEPAM 1 MG TABLET PO PRN (14:30)
[2016-05-01] MEDS ORDERED: Magnesium 1GM/D5W 100ML PREMIX 100 ML IV SCH (14:30)
[2016-05-01] MEDS ORDERED: ASPIRIN EC 81 MG TABLET.DR PO SCH (14:30)
[2016-05-01] MEDS: QUETIAPINE FUMARATE 25 MG TABLET PO SCH ×2 (14:47→16:12)
[2016-05-01] MEDS: clonazePAM 0.5 MG TABLET PO SCH ×2 (14:47→16:12)
[2016-05-01] MEDS: FOLIC ACID 1 MG TABLET PO SCH (14:47)
[2016-05-01] MEDS: DIGOXIN 0.125 MG TABLET PO SCH (14:48)
[2016-05-01] MEDS: LOSARTAN POTASSIUM 25 MG TABLET PO SCH (14:50)
[2016-05-01 16:00] VITALS: BP 130/68
[2016-05-01] MEDS: MEMANTINE HCL 5 MG TABLET PO SCH (16:12)
[2016-05-01] MEDS: DOCUSATE SODIUM 100 MG CAPSULE PO SCH (16:12)
[2016-05-01] MEDS: busPIRone 5 MG TABLET PO SCH (16:12)
[2016-05-01] MEDS: risperiDONE 0.25 MG TABLET PO SCH (16:12)
[2016-05-01] MEDS: CARVEDILOL 6.25 MG TABLET PO SCH (16:14)
--- NOTE | 2016-05-01 18:50 | NUR ---
MS RN NOTE: PATIENT REMAINS STABLE IN BED, A/OX 1. BREATHING EVEN AND UNLABORED ON ROOM AIR. NO SOB, NO DISTRESS. IVF RUNNING WELL. NO COMPLICATIONS NOTED. ALL NEEDS ATTENDED TO, SAFETY MEASURES IN PLACE, WILL ENDORSE TO ASSEMBLY LINE SUPERVISOR FOR MEAGAN.
--- NOTE | 2016-05-01 19:30 | NUR ---
MS RN: RECEIVED PT IN BED WT EYES CLOSED. DROWSY AND RESPONSIVE TO LIGHT PAIN. UNABLE TO FOLLOW COMMANDS AT THIS TIME. ON R/A WT NO ACUTE DISTRESS, NO EVIDENCE OF DISCOMFORT. ON D5NS AT 70ML/HR WT AND TOLERATING WELL WT NO S/S OF INFILTRATION ON IV SITE. SAFETY PRECAUTION NOTED. WILL CONTINUE TO MONITOR.
[2016-05-01 20:00] VITALS: BP 99/57
[2016-05-01] MEDS: ATORVASTATIN 10 MG TABLET PO SCH (22:24)
[2016-05-01] MEDS: DONEPEZIL 5 MG TABLET PO SCH (22:24)
--- NOTE | 2016-05-01 22:30 | NUR ---
MS RN: PT MORE ALERT, OPENS EYES AT TIMES. ABLE TO FOLLOW SIMPLE COMMANDS SUCH OPEN MOUTH AND ABLE TO SWALLOW MEDS MIXED WT APPLE SAUCE AND NECTAR THICKENED LIQUIDS FOR ASPIRATION PRECAUTION. HOB ON HIGH-PAYAN'S. WILL CONTINUE TO MONITOR.
[2016-05-02 04:00] VITALS: BP 148/87
--- NOTE | 2016-05-02 06:10 | NUR ---
MS RN: PT MORE ALERT AND THIS TIME (EASILY AROUSED WHEN AWAKEN AND OPENS EYES MORE COMPARED FROM THE START OF THE SHIFT). TALKS MORE CLEARLY BUT STILL DISORIENTED. REORIENTED BUT WITH MINIMAL HELP. ABLE TO FOLLOW SIMPLE COMMANDS. STILL ON R/A WT NO ACUTE DISTRESS. NO EVIDENCE OF DISCOMFORT. TOLERATING IVF HYDRATION WT NO S/S OF CONGESTION AND VOIDED MEDIUM SOAKED DIAPER X 4. HAD 1 LARGE AMT OF SOFT FORMED BROWN STOOL. BED BATH GIVEN AND TOLERATED WELL. VS WITHIN HER BASELINE. ALL NEEDS MET. SAFETY PRECAUTION NOTED.
[2016-05-02 07:07] LABS: BASOPHILS % (AUTO) 0.5 % (0.0-2.0); EOSINOPHILS # (AUTO) 0.2 /CMM (0.0-0.7); EOSINOPHILS % (AUTO) 2.7 % (0.0-6.0); HEMATOCRIT 47 % (33-45); HEMOGLOBIN 15.5 g/dL (11.5-14.8); LYMPHOCYTES # (AUTO) 2.5 /CMM (0.8-4.8); LYMPHOCYTES % (AUTO) 28.3 % (20.0-44.0); MEAN CORPUSCULAR HEMOGLOBIN 33 PG (26.0-33.0); MEAN CORPUSCULAR HGB CONC 33 g/dl (31.0-36.0); MEAN CORPUSCULAR VOLUME 100 fL (82-100); MONOCYTES # (AUTO) 1.1 /CMM (0.1-1.30); NEUTROPHILS % (AUTO) 56.5 % (43.0-81.0); PLATELET COUNT (AUTO) 140 /CMM (150-450); RDW COEFFICIENT OF VARIATION 13.8 (11.5-15.0); RED BLOOD CELL COUNT(AUTO) 4.73 MIL/uL (4.0-5.2); WHITE BLOOD COUNT (AUTO) 8.8 K/uL (4.3-11.0)
--- NOTE | 2016-05-02 07:30 | NUR ---
PT RECEIVED RESTING COMFORTABLY IN BED WITH EYES CLOSED. NO S/S OR C/O PAIN OR DISTRESS NOTED. SIDE RAILS UP X2, CALL LIGHT LEFT WITHIN REACH. WILL CONTINUE PLAN OF CARE.
[2016-05-02 07:49] LABS: CALCIUM, SERUM 8.2 mg/dL (8.5-10.1); CREATININE 0.8 mg/dL (0.6-1.3); MAGNESIUM 1.5 mg/dL (1.8-2.4); POTASSIUM 3.7 mmol/L (3.5-5.1)
[2016-05-02 08:00] VITALS: BP 160/112
[2016-05-02] MEDS: QUETIAPINE FUMARATE 25 MG TABLET PO SCH ×2 (09:00→12:00)
[2016-05-02] MEDS: risperiDONE 0.25 MG TABLET PO SCH ×2 (09:00→12:00)
[2016-05-02] MEDS: FAMOTIDINE (20 MG) 20 MG TABLET PO SCH (09:03)
[2016-05-02] MEDS: DIGOXIN 0.125 MG TABLET PO SCH (09:03)
[2016-05-02] MEDS: DOCUSATE SODIUM 100 MG CAPSULE PO SCH ×2 (09:03→16:58)
[2016-05-02] MEDS: ASPIRIN 81 MG TAB.CHEW PO SCH (09:03)
[2016-05-02] MEDS: LOSARTAN POTASSIUM 25 MG TABLET PO SCH (09:04)
[2016-05-02] MEDS: busPIRone 5 MG TABLET PO SCH ×2 (09:04→16:57)
[2016-05-02] MEDS: FOLIC ACID 1 MG TABLET PO SCH (09:04)
[2016-05-02] MEDS: clonazePAM 0.5 MG TABLET PO SCH ×3 (09:04→16:58)
[2016-05-02] MEDS: CARVEDILOL 6.25 MG TABLET PO SCH ×2 (09:04→16:58)
[2016-05-02] MEDS: MEMANTINE HCL 5 MG TABLET PO SCH ×2 (09:04→16:57)
[2016-05-02] MEDS: ENOXAPARIN SODIUM 30 MG/0.3 ML DISP.SYRIN SQ SCH (09:08)
[2016-05-02] MEDS ORDERED: SECONDARY IV SET 1 EA INFUS.SET MC ONE (11:49)
[2016-05-02] MEDS: Magnesium 1GM/D5W 100ML PREMIX 100 ML IV SCH ×2 (12:00→13:16)
[2016-05-02] MEDS ORDERED: QUETIAPINE FUMARATE 25 MG TABLET PO PRN (14:30)
[2016-05-02 16:00] VITALS: BP 116/60
--- NOTE | 2016-05-02 18:19 | NUR ---
CHANGE OF SHIFT REPORT PT RESTING COMFORTABLY IN BED WITH EYES CLOSED. NO S/S OR C/O PAIN OR DISTRESS NOTED. SIDE RAILS UP X2, CALL LIGHT LEFT WITHIN REACH. PT KEPT CLEAN, DRY, AND COMFORTABLE. NO SIGNIFICANT CHANGES SINCE PREVIOUS SHIFT. WILL GIVE REPORT TO AMY KLEIN.
[2016-05-02 20:00] VITALS: BP 90/51
--- NOTE | 2016-05-02 20:00 | NUR ---
POULTRY VETERINARIAN; RECEIVED PT AAO X1, CONFUSED, HAS DEMENTIA, RESTING COMFORTABLY IN BED WITH EYES CLOSED. NO S/S OR C/O PAIN OR DISTRESS NOTED. SAFETY PRECAUTION PLACED: SIDE RAILS UP X2, CALL LIGHT LEFT WITHIN REACH. V/S STABLE. IV FLUID ONGOING. IV ACCESS INTACT. REPOSITIONED FOR COMFORT. ONGOING MONITORING..
[2016-05-02] MEDS: ATORVASTATIN 10 MG TABLET PO SCH (21:43)
[2016-05-02] MEDS: DONEPEZIL 5 MG TABLET PO SCH (21:43)
--- NOTE | 2016-05-02 23:28 | NUR ---
AIRCRAFT FUSELAGE FRAMER; PT COMFORTABLY RESTING, NO DISTRESS. STILL LOOKS VERY DROWSY, BUT ABLE TO SWALLOW CRUSH PILLS.
[2016-05-03] MEDS: IV D5/ 0.9% NACL 1,000 ML IV PRN ×2 (01:03→18:47)
[2016-05-03 04:00] VITALS: BP 148/78
--- NOTE | 2016-05-03 07:30 | NUR ---
INITIAL NOTE PATIENT IN BED, OPENS EYES TO NAME, DOESN;T KNOW WHERE SHE IS OR THE DATE. DOES NOT FOLLOW COMMAND. VERBALIZES BASIC NEEDS. BREATHING WNL. RFA IV PATENT WITH PRESCRIBED IV FLUIDS INFUSING, LFA IV PATENT BUT BLOOD ON DRESSING. WILL REMOVE. SKIN WARM AND DRY. PULSES PALPABLE IN ALL EXTREMITIES. POSITIONED IN FUNCTIONAL ALIGNMENT. CALL LIGHT IN REACH
[2016-05-03 08:00] VITALS: BP 146/91
[2016-05-03] MEDS: LOSARTAN POTASSIUM 25 MG TABLET PO SCH (08:39)
[2016-05-03] MEDS: QUETIAPINE FUMARATE 25 MG TABLET PO SCH ×2 (08:40→16:33)
[2016-05-03] MEDS: ASPIRIN 81 MG TAB.CHEW PO SCH (08:40)
[2016-05-03] MEDS: MEMANTINE HCL 5 MG TABLET PO SCH ×2 (08:40→16:29)
[2016-05-03] MEDS: DOCUSATE SODIUM 100 MG CAPSULE PO SCH ×2 (08:40→16:29)
[2016-05-03] MEDS: FAMOTIDINE (20 MG) 20 MG TABLET PO SCH (08:40)
[2016-05-03] MEDS: clonazePAM 0.5 MG TABLET PO SCH ×2 (08:40→16:29)
[2016-05-03] MEDS: DIGOXIN 0.125 MG TABLET PO SCH (08:41)
[2016-05-03] MEDS: busPIRone 5 MG TABLET PO SCH ×2 (08:41→16:29)
[2016-05-03] MEDS: CARVEDILOL 6.25 MG TABLET PO SCH ×2 (08:42→16:29)
[2016-05-03] MEDS: FOLIC ACID 1 MG TABLET PO SCH (08:42)
[2016-05-03] MEDS: ENOXAPARIN SODIUM 30 MG/0.3 ML DISP.SYRIN SQ SCH (08:45)
[2016-05-03 09:19] LABS: CREATININE 0.7 mg/dL (0.6-1.3); MAGNESIUM 1.7 mg/dL (1.8-2.4); POTASSIUM 3.7 mmol/L (3.5-5.1)
[2016-05-03] MEDS ORDERED: MAGNESIUM OXIDE 400 MG TABLET PO ONE (17:30)
--- NOTE | 2016-05-03 19:19 | NUR ---
RN CLOSING NOTE NO CHANGE IN CONDITION. HANDED OFF REPORT. PLAN FOR D/C. PER CRISTOFER AND JENNIFER CM[facility], SNF NOT ACCEPTING TONIGHT. WILL D/C IN AM. SKIN INTACT. AFEBRILE O2 SAT WNL. PATIENT ARROUSABLE TO NAME. STILL SEMI-DROWSY, INFORMED DR. JOHNSON THIS SHIFT. CALL LIGHT INR EACH.
[2016-05-03 20:00] VITALS: BP_SYST 140; BP_SYST 148; BP_DIAS 86
--- NOTE | 2016-05-03 20:05 | NUR ---
MS1/RN RECEIVE PATIENT AWAKE, COMFORTABLE, NO SIGNS OF DISTRESS NOTED, IVF INFUSING, CALL LIGHT IN REACH. WILL MONITOR.
[2016-05-03] MEDS ORDERED: MAGNESIUM OXIDE 400 MG TABLET PO SCH (22:00)
[2016-05-03] MEDS: DONEPEZIL 5 MG TABLET PO SCH (22:14)
[2016-05-03] MEDS: ATORVASTATIN 10 MG TABLET PO SCH (22:14)
--- NOTE | 2016-05-04 02:42 | NUR ---
MS1/RN PATIENT IS SLEEPING, AROUSABLE, APPEAR COMFORTABLE, NO SIGNS OF DISTRESS NOTED, CALL LIGHT IN REACH. WILL CONTINUE TO MONITOR.
[2016-05-04 04:00] VITALS: BP 148/103
--- NOTE | 2016-05-04 05:30 | NUR ---
MS1/RN IV GOT INFILTRATED, ELEVATED AFFECTED AREA AND WARM COMPRESS APPLIED. ATTEMPTED IV INSERTION X 4 BUT NOT SUCCESSFUL. PATIENT IS VERY HARD STICK. WILL TRY AGAIN LATER.
--- NOTE | 2016-05-04 06:31 | NUR ---
MS1/RN STILL SLEEPING, COMFORTABLE, AROUSABLE, ALL NEEDS ATTENDED AT THIS TIME. WILL CONTINUE TO MONITOR.
--- NOTE | 2016-05-04 06:52 | NUR ---
TELE1/RN UNABLE TO INSERT IV IN UPPER EXTREMITIES. OBTAINED ORDER FROM DR. PINEDA FOR IV INSERTION ON FOOT. CHARGE NURSE ABLE TO INSERT IV ON RT. FOOT.
--- NOTE | 2016-05-04 07:30 | NUR ---
INITIAL NOTE PATIENT IN BED, OPENS EYES TO NAME, DOESN'T KNOW WHERE SHE IS OR THE DATE. DOES NOT FOLLOW COMMAND. VERBALIZES BASIC NEEDS. BREATHING WNL. L foot IV PATENT WITH PRESCRIBED IV FLUIDS INFUSING. R LEG WITH SCD. SKIN WARM AND DRY. PULSES PALPABLE IN ALL EXTREMITIES. POSITIONED IN FUNCTIONAL ALIGNMENT. CALL LIGHT IN REACH.
[2016-05-04 08:00] VITALS: BP 153/107
[2016-05-04] MEDS: QUETIAPINE FUMARATE 25 MG TABLET PO SCH (08:07)
[2016-05-04] MEDS: FOLIC ACID 1 MG TABLET PO SCH (08:08)
[2016-05-04] MEDS: MEMANTINE HCL 5 MG TABLET PO SCH (08:08)
[2016-05-04] MEDS: CARVEDILOL 6.25 MG TABLET PO SCH (08:08)
[2016-05-04 08:09] VITALS: BP 153/107
[2016-05-04] MEDS: LOSARTAN POTASSIUM 25 MG TABLET PO SCH (08:09)
[2016-05-04] MEDS: FAMOTIDINE (20 MG) 20 MG TABLET PO SCH (08:09)
[2016-05-04] MEDS: clonazePAM 0.5 MG TABLET PO SCH (08:10)
[2016-05-04] MEDS: DIGOXIN 0.125 MG TABLET PO SCH (08:10)
[2016-05-04] MEDS: DOCUSATE SODIUM 100 MG CAPSULE PO SCH (08:10)
[2016-05-04] MEDS: ASPIRIN 81 MG TAB.CHEW PO SCH (08:11)
[2016-05-04] MEDS: busPIRone 5 MG TABLET PO SCH (08:11)
[2016-05-04] MEDS: ENOXAPARIN SODIUM 30 MG/0.3 ML DISP.SYRIN SQ SCH (08:20)
[2016-05-04 08:26] LABS: CALCIUM, SERUM 7.8 mg/dL (8.5-10.1); CREATININE 0.8 mg/dL (0.6-1.3); MAGNESIUM 1.4 mg/dL (1.8-2.4); POTASSIUM 3.6 mmol/L (3.5-5.1)
[2016-05-04] MEDS ORDERED: IV SET PRIMARY PUMP SET 1 EA INFUS.SET MC ONE (10:30)
--- NOTE | 2016-05-04 15:30 | NUR ---
discharge note patient left in stable condition accompanied by 2 emt via [facility]. opens eyes spontaneously, verbalizes basic needs. still does not follow commands. IV removed, no bleeding, no infiltration. ID band removed. belongings all with patient- only with clothing. medication list included in discharge paper work. communicated to patient's daughter Erika about discharge, daughter verbalized understanding. provided all discharge summary paper work including medication to continue and discontinue. no new skin break down in hospital, discharge skin photos in chart. patient unable to sign, charge nurse signed. patient escorted safely to ambulance. gave report to Analilia at [facility].
== END 2016-05-04 15:43 | DRG 70 ==
LOC: ER 21:30 → MEDSG1 23:38
PROVIDERS: ADMIT Legal Medicine; ATTEND Legal Medicine
DX: G93.41 Metabolic encephalopathy (principal); I50.23 Acute on chronic systolic (congestive) heart failure; I25.10 Atherosclerotic heart disease of native coronary artery without angina pectoris; I48.91 Unspecified atrial fibrillation; K21.9 Gastro-esophageal reflux disease without esophagitis; M19.90 Unspecified osteoarthritis, unspecified site; I48.2 Chronic atrial fibrillation; K27.9 Peptic ulcer, site unspecified, unspecified as acute or chronic, without hemorrhage or perforation; E78.5 Hyperlipidemia, unspecified; I34.0 Nonrheumatic mitral (valve) insufficiency; I11.0 Hypertensive heart disease with heart failure; G30.9 Alzheimer's disease, unspecified; F02.80 Dementia in other diseases classified elsewhere, unspecified severity, without behavioral disturbance, psychotic disturbance, mood disturbance, and anxiety
CPT/HCPCS: 36415; 70450-TC; 71010-TC; 80048-TC; 80076-TC; 80162-TC; 81000-TC; 82140-TC; 82962-TC; 83605-TC; 83735-TC; 84100-TC; 84443-TC; 84484-TC; 85025-TC; 85730-TC; 87040-TC; 87081-TC; A4606; G0480; G6039-TC; J1650; J3475; J7042; Z7610

== ENCOUNTER 2017-06-13 13:30 | Inpatient (IN) | payer MEDICARE, OTHER ==
[~2017-06-13] VITALS: Ht 165.1 cm; Wt 69.1 kg
[~2017-06-13 13:30] MED LIST changes: +ASPI-1152 PO; -ASPI-991 PO; +CLON0.5T12 PO; -CLON0.5T4 PO; +DOCU-141 PO; -DOCU-25 PO; +LORA-259 PO; -LORA1TAB82 PO
--- NOTE | 2017-06-13 13:30 | NUR ---
MYRA RA FROM [facility] FOR R SIDED FACIAL DROOP SINCE 1100. LFA #20 IV ACCESS STOCK HANDLER FLOORPERSON
--- NOTE | 2017-06-13 13:30 | NUR ---
LAST KNOWN WELL 1100 AM
--- NOTE | 2017-06-13 13:33 | NUR ---
PT TAKEN TO CT
--- NOTE | 2017-06-13 13:40 | NUR ---
PT BACK FROM CT
--- NOTE | 2017-06-13 13:43 | NUR ---
CALLED [facility] TELESTROKE NUMBER AND NOTIFIED THEM OF THE CODE STROKE. DR RM WILL BE GIVING US A CALL BACK.
--- NOTE | 2017-06-13 13:46 | NUR ---
ON PHONE WITH DR RM.
[2017-06-13] MEDS ORDERED: IOHEXOL-350 100 ML VIAL IV ONE (13:52)
[2017-06-13] MEDS ORDERED: IV NS 0.9% 250 ML IV ONE (13:53)
--- NOTE | 2017-06-13 14:03 | NUR ---
DR RM CALLED TO CLARIFY, HE DID SAY THAT PATIENT IS NOT A CANDIDATE FOR TPA AND DOES NOT NEED CTA. DR VALDES INFORMED
--- NOTE | 2017-06-13 14:20 | NUR ---
CALLED DR CORTES'S OFFICE AND A PAGE WAS SENT OUT TO HIM.
[2017-06-13 14:25] LABS: BASOPHILS # (AUTO) 0.2 /CMM (0.0-0.2); EOSINOPHILS % (AUTO) 1.3 % (0.0-6.0); HEMATOCRIT 47 % (33-45); HEMOGLOBIN 16.5 g/dL (11.5-14.8); LYMPHOCYTES # (AUTO) 2.2 /CMM (0.8-4.8); LYMPHOCYTES % (AUTO) 20.5 % (20.0-44.0); MEAN CORPUSCULAR HGB CONC 35 g/dl (31.0-36.0); MEAN CORPUSCULAR VOLUME 98 fL (82-100); MONOCYTES # (AUTO) 0.7 /CMM (0.1-1.30); MONOCYTES % (AUTO) 6.6 % (2.0-12.0); NEUTROPHILS # (AUTO) 7.3 /CMM (1.8-8.9); NEUTROPHILS % (AUTO) 69.6 % (43.0-81.0); PLATELET COUNT (AUTO) 142 /CMM (150-450); RDW COEFFICIENT OF VARIATION 12.8 (11.5-15.0); RED BLOOD CELL COUNT(AUTO) 4.79 MIL/uL (4.0-5.2); WHITE BLOOD COUNT (AUTO) 10.5 K/uL (4.3-11.0)
[2017-06-13] MEDS ORDERED: IV NS 0.9% 500 ML IV ONE (14:30)
[2017-06-13 14:35] LABS: CALCIUM, SERUM 8.6 mg/dL (8.5-10.1); CARBON DIOXIDE 22 mmol/L (21-32); CHLORIDE 106 mmol/L (98-107); CREATININE 0.9 mg/dL (0.6-1.3); GLUCOSE 80 mg/dL (74-106); POTASSIUM 4.7 mmol/L (3.5-5.1); SODIUM SERUM 138 mmol/L (136-145); UREA NITROGEN, BLOOD 20 mg/dL (7-18)
[2017-06-13 14:39] LABS: INR 1.06 (0.85-1.15)
--- NOTE | 2017-06-13 14:43 | NUR ---
PT IS ASSIGNED TO [facility]#: [id number], PT IS DIAGNOSED WITH STROKE, AND DR CORTES IS THE ACCEPTING MD.
[2017-06-13 14:46] LABS: TROPONIN I < 0.017 ng/mL (0.00-0.056)
--- NOTE | 2017-06-13 14:48 | NUR ---
Report given to ERNIE Yap for MEAGAN Tele [id number]
--- NOTE | 2017-06-13 14:50 | NUR ---
RECEIVED TELEPHONE REPORT FROM ERNIE ELDER FROM ER.
--- NOTE | 2017-06-13 15:10 | NUR ---
FLY WINDER ADMITTING NOTE PATIENT ARRIVED TO THE UNIT VIA GURNEY. NON-VERBAL, OPENS EYES. R/SIDED FACIAL DROOPING. SAFELY TRANSFERRED TO THE BED. BED IS LOCKED IN LOWEST POSITION, SIDE RAILS UP X3, BED ALARM IS ON. NO S/S OF PAIN/DISCOMFORT. SPO2 96% ON RA. SKIN IS INTACT. WILL CONTINUE TO ASSESS/MONITOR THROUGHOUT THE SHIFT.
[2017-06-13 15:27] LABS: CHOLESTEROL 144 mg/dL (<200); HDL CHOLESTEROL 49 mg/dL (40-60); LDL 88 mg/dL (0-99); TRIGLYCERIDES 66 mg/dL (30-150)
[2017-06-13 16:00] VITALS: BP_SYST 152; BP_SYST 167; BP_DIAS 84; BP_DIAS 86
[2017-06-13] MEDS ORDERED: ASPIRIN 300 MG/SUPP.RECT RC PRN (16:00)
[2017-06-13] MEDS ORDERED: IV NS 0.9% 1,000 ML BAG IV PRN (16:00)
[2017-06-13] MEDS ORDERED: ONDANSETRON HCL/PF 4 MG/2 ML VIAL IV PRN (16:00)
[2017-06-13] MEDS: IV NS 0.9% 1,000 ML IV PRN (18:40)
[2017-06-13] MEDS: PANTOPRAZOLE 40 MG VIAL IV SCH (18:42)
[2017-06-13] MEDS: ENOXAPARIN SODIUM 40 MG/0.4 ML DISP.SYRIN SQ SCH (18:53)
--- NOTE | 2017-06-13 19:28 | NUR ---
SURFACE TO AIR WEAPONS OFFICER CLOSING NOTE PATIENT IS NON-VERBAL, OPENS EYES TO NAME, AND TOUCH. R/SIDED FACIAL DROOPING. ASLEEP IN BED. BED. BED IS LOCKED IN LOWEST POSITION, SIDE RAILS UP X3, BED ALARM IS ON. NO S/S OF PAIN/DISCOMFORT. SPO2 97% ON RA. SKIN IS INTACT. ALL DUE MEDICATIONS ADMINISTERED. SBAR REPORT GIVEN TO OLIVIA KLEIN FOR MEAGAN.
--- NOTE | 2017-06-13 19:30 | NUR ---
OUTBOUND SALES PROFESSIONAL INITIAL NOTE PT IS IN BED SLEEPING. AROUSED TO NAME BEGAN TO LAUGH. WHEN ASKING BASIC QUESTIONS PT WAS ONLY TO REPLY "YES". ON ASSESSMENT PT HAS RIGHT SIDED FACIAL DROPPING ALONG WITH RIGHT SIDED DRIPPING IN EXTREMITIES WHEN ASKING THE PATIENT TO HOLD HER ARMS AND LEGS UP. PT IS NPO PENDING SPEECH EVAL. ON TELE MONITOR SHE IS CONTROLLED FIB AT 68. IV ACCESS IS INTACT AND PATIENT. BED IS IN LOW AND LOCKED POSITION, BED ALARM IS ON. WILL CONTINUE TO MONITOR PT.
[2017-06-13 20:00] VITALS: BP 142/77
[2017-06-14] VITALS (7 sets, daily range): BP systolic 151–187; BP diastolic 92–125
--- NOTE | 2017-06-14 00:05 | NUR ---
MEDICAL GENETICIST NOTE PAGED THREAT ANALYST FOR DR CORTES. PT BP IS 187/92. AWAITING CALL BACK.
--- NOTE | 2017-06-14 00:35 | NUR ---
RECONNAISSANCE MAN NOTE PER DR CORTES, WE DO NOT TRY TO LOWER THE BP RIGHT AWAY BECAUSE IT PROLONGS THE EFFECTS OF THE STROKE. DR CORTES SAID TO JUST MONITOR THE PATIENT AND CALL BACK IF THE BP GOES OVER 200. WILL CONTINUE TO MONITOR PT
--- NOTE | 2017-06-14 06:35 | NUR ---
MANAGER CLINICAL RESEARCH CLOSING NOTE PT IS IN BED RESTING, EASILY AROUSED. PT IS MORE ALERT THIS MORNING. NO SIGNS OF SOB OR DISTRESS, BREATHING EVENLY AND UNLABORED. ON TELE MONITOR A FIB CONTROLLED AT 74. NO ACUTE CHANGES THROUGHOUT THE SHIFT. BED IS IN LOW AND LOCKED POSITION, CALL LIGHT WITHIN REACH. WILL ENDORSE TO DAYSHIFT
--- NOTE | 2017-06-14 07:22 | NUR ---
POST ANESTHESIA ROOM NURSE OPENING NOTE RECEIVED BEDSIDE SBAR REPORT ON THE PATIENT. PATIENT IS AWAKE WITH EYES OPEN. DOES NOT RESPOND TO VERBAL COMMANDS. PER NATALLY RN PATIENT WAS SAYING "YES" AND SMILING/LAUGHING WHEN TALKED TO. CURRENTLY PATIENT ONLY LOOKS AT RN WHEN TALKED TO. DOES NOT RESPOND VERBALLY. DOES NOT FOLLOW COMMANDS. RIGHT SIDED FACIAL DROOPING PRESENT. CHEST RISING EQUALLY/BILATERALLY. EXTERNAL MONITOR READING CONTROLLED AFIB WITH RATE 70. SPO2 95% ON ROOM AIR. PATIENT IS IN IN BED. BED IS LOCKED, IN LOWEST POSITION, SITE RAILS UP X3. NO S/S OF PAIN/DISCOMFORT. REPOSITIONED FOR FUNCTIONAL ALIGNMENT OF THE LIMBS. WILL CONTINUE TO ASSESS/MONITOR THROUGHOUT THE SHIFT.
[2017-06-14] MEDS ORDERED: LORA0.5T PO (07:41)
[2017-06-14 07:59] LABS: BASOPHILS % (AUTO) 0.5 % (0.0-2.0); EOSINOPHILS % (AUTO) 1.5 % (0.0-6.0); HEMATOCRIT 47 % (33-45); HEMOGLOBIN 15.9 g/dL (11.5-14.8); LYMPHOCYTES % (AUTO) 25.6 % (20.0-44.0); MEAN CORPUSCULAR HGB CONC 34 g/dl (31.0-36.0); MEAN CORPUSCULAR VOLUME 99 fL (82-100); MONOCYTES # (AUTO) 0.6 /CMM (0.1-1.30); MONOCYTES % (AUTO) 7.8 % (2.0-12.0); NEUTROPHILS % (AUTO) 64.6 % (43.0-81.0); PLATELET COUNT (AUTO) 153 /CMM (150-450); RDW COEFFICIENT OF VARIATION 13.4 (11.5-15.0); RED BLOOD CELL COUNT(AUTO) 4.78 MIL/uL (4.0-5.2); WHITE BLOOD COUNT (AUTO) 7.7 K/uL (4.3-11.0)
[2017-06-14 08:13] LABS: CALCIUM, SERUM 8.4 mg/dL (8.5-10.1); CARBON DIOXIDE 25 mmol/L (21-32); CHLORIDE 104 mmol/L (98-107); CREATININE 0.8 mg/dL (0.6-1.3); GLUCOSE 78 mg/dL (74-106); POTASSIUM 4.1 mmol/L (3.5-5.1); SODIUM SERUM 139 mmol/L (136-145); UREA NITROGEN, BLOOD 13 mg/dL (7-18)
[2017-06-14 08:47] LABS: CHOLESTEROL 144 mg/dL (<200); HDL CHOLESTEROL 47 mg/dL (40-60); LDL 86 mg/dL (0-99); TRIGLYCERIDES 70 mg/dL (30-150)
[2017-06-14] MEDS: Z GUARD REMEDY 2 OZ OINT TP SCH (09:26)
--- NOTE | 2017-06-14 14:05 | NUR ---
PATIENT IS BACK FROM EGD IS STABLE CONDITION. ORDER RECEIVED FROM DR. COREAS TO START CLEAR LIQUIDS AND ADVANCE TOLERATED. Addendum: 06/14/17 at 1419 by KATHERINE MORAN RN CHARTED ON WRONG PATIENT
--- NOTE | 2017-06-14 15:54 | NUR ---
MRI ORDERED BY DR ORONA. RN UNABLE TO COMPLETE THE MRI QUESTIONER. [facility] WAS UNABLE TO PROVIDE ANY INFORMATION. SPOKE TO RAZIA OIL BURNER INSTALLER. PER RAZIA THERE ARE NO NURSES IN THE FACILITY IT IS [facility]. PRIMARY CARE PHYSICIAN NOTIFIED.
[2017-06-14] MEDS: PANTOPRAZOLE 40 MG VIAL IV SCH (16:59)
[2017-06-14] MEDS: DOCUSATE SODIUM 100 MG CAPSULE PO SCH (17:00)
--- NOTE | 2017-06-14 17:00 | NUR ---
RECEIVED ORDER FROM DR CORTES FOR STRAIGHT IN AND OUT CATH FOR URINE COLLECTION
--- NOTE | 2017-06-14 17:45 | NUR ---
URINE COLLECTED VIA STRAIGHT CATH. PATIENT TOLERATED PROCEDURE WELL. URINE SAMPLE SENT TO LAB.
--- NOTE | 2017-06-14 18:18 | NUR ---
PER DR SEBASTIAN COELHO TO DO MRI, NO METALS ARE PRESENT. READ BACK AND VERIFIED. OVERLOCK HEMMER NOTIFIED. MRI WILL BE DONE TOMORROW AM.
--- NOTE | 2017-06-14 18:31 | NUR ---
NG TUBE INSERTED. ORDER OBTAINED FOR STAT XRAY TO CONFIRM PLACEMENT. PATIENT ATTEMPTED TO REMOVE THE NG TUBE SEVERAL TIMES. UNABLE TO UNDERSTAND ANY TEACHINGS AND FOLLOW ANY DIRECTIONS. DR CORTES INFORMED. ORDER OBTAINED FOR BILATERAL SOFT WRIST RESTRAINS. READ BACK AND VERIFIED.
--- NOTE | 2017-06-14 18:43 | NUR ---
MS RN CLOSING NOTE RECEIVED BEDSIDE SBAR REPORT ON THE PATIENT. PATIENT IS AWAKE WITH EYES OPEN. DOES NOT RESPOND TO VERBAL COMMANDS. CURRENTLY PATIENT ONLY LOOKS AT RN WHEN TALKED TO. DOES NOT RESPOND VERBALLY. DOES NOT FOLLOW COMMANDS. FACE BECAME SYMMETRICAL. CHEST RISING EQUALLY/BILATERALLY. SPO2 95% ON ROOM AIR. PATIENT IS IN IN BED. BED IS LOCKED, IN LOWEST POSITION, SITE RAILS UP X3. NO S/S OF PAIN/DISCOMFORT. NG TUBE PRESENT. PATIENT IS IN BILATERAL SOFT WRIST RESTRAINS. REPOSITIONED FOR COMFORT/FUNCTIONAL ALIGNMENT OF THE LIMBS. MRI PENDING IN THE AM. WILL ENDORSE TO THE DREDGE PIPEMAN NORSE FOR MEAGAN.
--- NOTE | 2017-06-14 19:15 | NUR ---
MS RN OPENING NOTE RECEIVED PATIENT IN BED, AWAKE, OPENS EYES, LOOKS. NO VERBAL RESPONSE. DOES NOT RESPOND OR FOLLOW TO VERBAL COMMANDS. FACE SYMMETRICAL AT THIS TIME. REPARATIONS EVEN AND UNLABORED. ON ROOM AIR TOLERATING WELL. NO S/S OF PAIN/DISCOMFORT AT THIS TIME. NG TUBE PRESENT PENDING PLACEMENT VERIFICATION VIA CXR. PATIENT IS IN BILATERAL SOFT WRIST RESTRAINS DUE TO BEING COMBATIVE AND TRYING TO PULL OUT HER TUBES. TO BE REPOSITIONED FOR COMFORT. MRI PENDING IN THE AM. SAFETY MEASURES IN PLACE, BED IN LOW LOCKED POSITION, SIDE RAILS UP X3, CALL LIGHT WITHIN EASY REACH. WILL CONTINUE TO MONITOR.
[2017-06-14 19:52] LABS: APPEARANCE,URINE CLOUDY (CLEAR); BILIRUBIN,URINE NEGATIVE (NEGATIVE); BLOOD, URINE 2+ Ery/uL (NEGATIVE); COLOR,URINE YELLOW (YELLOW); KETONES,URINE TRACE (NEGATIVE); LEUKOCYTE ESTERASE ,URINE NEGATIVE (NEGATIVE); NITRITE, URINE NEGATIVE (NEGATIVE); PROTEIN,URINE NEGATIVE (NEGATIVE); UGLUCOSE NEGATIVE (NEGATIVE); UROBILINOGEN,URINE 0.2 EU/dL (0.2)
[2017-06-14 20:04] LABS: BACTERIA,URINE Many /HPF (None Seen); SQUAMOUS EPITHELIAL CELL,UR Few /HPF (None Seen); WBC,URINE 21-50 /HPF (0-3)
--- NOTE | 2017-06-14 21:00 | NUR ---
RECEIVED REPORT FROM RADIOLOGY. PATIENT'S NG TUBE IS COILED AND IS NOT IN PLACE. WILL REMOVE AND REATTEMPT NEW INSERTION.
--- NOTE | 2017-06-14 21:00 | NUR ---
PATIENT'S BLOOD PRESSURE IS 167/114. PERMISSIVE HTN PER DR ORONA, NO BP TREATMENT ORDERED AT THIS TIME. WILL CONTINUE TO MONITOR.
[2017-06-14] MEDS: ENOXAPARIN SODIUM 40 MG/0.4 ML DISP.SYRIN SQ SCH (21:19)
[2017-06-14] MEDS: ATORVASTATIN 10 MG TABLET PO SCH (21:23)
--- NOTE | 2017-06-14 21:40 | NUR ---
REMOVED PATIENT'S NG TUBE. APPEARED TO HAVE SOME BLOOD IN THE TUBE. WILL REPORT TO MD TO SEE IF HE WANTS NG TO BE REINSERTED HELEN, AND CONTINUE TO MONITOR.
[2017-06-14] MEDS ORDERED: ATORVASTATIN 10 MG TABLET PO SCH (22:00)
--- NOTE | 2017-06-14 22:00 | NUR ---
RELEASED PATIENT'S SOFT WRIST RESTRAINTS. PATIENT'S APPEARS TO BE CALM AFTER NG TUBE REMOVAL. NO NEED FOR RESTRAINTS AT THIS MOMENT. WILL CONTINUE TO MONITOR.
--- NOTE | 2017-06-14 22:30 | NUR ---
LEFT MSG TO DR. CORTES REGARDING PATIENT'S NG TUBE AND ELEVATED BLOOD PRESSURE. WILL WAIT FOR FURTHER ORDERS.
--- NOTE | 2017-06-15 03:30 | NUR ---
PATIENT'S BP DECREASED TO 141/97. WILL CONTINUE TO MONITOR.
--- NOTE | 2017-06-15 07:10 | NUR ---
MS RN OPENING NOTE RECEIVED BEDSIDE SBAR REPORT ON THE PATIENT. PATIENT IS ASLEEP, OPENS EYES TO NAME/SOUND. DOES NOT RESPOND TO VERBAL COMMANDS, DOES NOT FOLLOW INSTRUCTIONS. CURRENTLY PATIENT ONLY LOOKS AT RN WHEN TALKED TO. FACE IS SYMMETRICAL. CHEST RISING EQUALLY/BILATERALLY. SPO2 96% ON ROOM AIR. PATIENT IS IN IN BED. BED IS LOCKED, IN LOWEST POSITION, SITE RAILS UP X3. NO S/S OF PAIN/DISCOMFORT. NG TUBE WAS REMOVED BY COFFERDAM CONSTRUCTION SUPERVISOR NURSE DUE TO XRAY CONFIRMING IT COILED OUTSIDE OF THE STOMACH. DR CORTES INFORMED. NO NEW ORDERS RECEIVED AT THIS TIME. PATIENT PRESENTS WITH CONTINUOUSLY ELEVATED BLOOD PRESSURE. PER DR CORTES ANTIHYPERTENSIVE MEDICATIONS TO BE HELD FOR ANOTHER 24 HOURS. PERMISSIVE HYPERTENSION PER NEUROLOGIST. PATIENT IS CURRENTLY NOT IN RESTRAINS. MRI PENDING THIS MORNING. WILL CONTINUE TO ASSESS/MONITOR THROUGHOUT THE SHIFT.
--- NOTE | 2017-06-15 07:27 | NUR ---
MS RN CLOSING NOTE PATIENT IN BED, ASLEEP, OPENS EYES, LOOKS. NO VERBAL RESPONSE. DOES NOT RESPOND OR FOLLOW TO VERBAL COMMANDS. FACE SYMMETRICAL AT THIS TIME. REPARATIONS EVEN AND UNLABORED. ON ROOM AIR TOLERATING WELL. NO S/S OF PAIN/DISCOMFORT AT THIS TIME. NG TUBE WAS REMOVED DUE TO NOT BEING IN ITS INTENDED PLACE. PATIENT'S SCHEDULED PO MEDICATION LIPITOR WAS HELD. PATIENT'S WRIST RESTRAINTS WAS REMOVED DUE TO PATIENT BEING CALM AND SAFE. TO BE REPOSITIONED FOR COMFORT. NEURO SCHECK PERFORMED EVERY 6 HOURS PER ORDER. MRI PENDING IN THE AM. SAFETY MEASURES IN PLACE, BED IN LOW LOCKED POSITION, SIDE RAILS UP X3, CALL LIGHT WITHIN EASY REACH. WILL ENDORSE TO AM NURSE FOR MEAGAN.
[2017-06-15 08:00] VITALS: BP 146/84
--- NOTE | 2017-06-15 08:06 | NUR ---
Per dr Tong hold enteral/po meds for now.
[2017-06-15] MEDS: Z GUARD REMEDY 2 OZ OINT TP SCH (08:53)
[2017-06-15] MEDS: DOCUSATE SODIUM 100 MG CAPSULE PO SCH ×2 (09:00→17:00)
[2017-06-15] MEDS: ASPIRIN EC 81 MG TABLET.DR PO SCH (09:00)
[2017-06-15] MEDS: DIGOXIN 0.125 MG TABLET PO SCH (09:00)
[2017-06-15] MEDS: FOLIC ACID 1 MG TABLET PO SCH (09:00)
--- NOTE | 2017-06-15 11:49 | NUR ---
MRI WILL BI DONE TODAY AFTER NOON.
--- NOTE | 2017-06-15 12:04 | NUR ---
PATIENT LEFT THE UNIT VIA GURNEY TO RADIOLOGY FOR MRI
--- NOTE | 2017-06-15 12:32 | NUR ---
PATIENT IS BACK TO THE UNIT.
[2017-06-15 15:42] LABS: BASOPHILS # (AUTO) 0.1 /CMM (0.0-0.2); BASOPHILS % (AUTO) 0.8 % (0.0-2.0); EOSINOPHILS % (AUTO) 1.6 % (0.0-6.0); HEMATOCRIT 49 % (33-45); HEMOGLOBIN 16.3 g/dL (11.5-14.8); LYMPHOCYTES # (AUTO) 1.9 /CMM (0.8-4.8); LYMPHOCYTES % (AUTO) 22.9 % (20.0-44.0); MEAN CORPUSCULAR HGB CONC 34 g/dl (31.0-36.0); MEAN CORPUSCULAR VOLUME 99 fL (82-100); MONOCYTES # (AUTO) 0.7 /CMM (0.1-1.30); MONOCYTES % (AUTO) 8.9 % (2.0-12.0); NEUTROPHILS # (AUTO) 5.4 /CMM (1.8-8.9); NEUTROPHILS % (AUTO) 65.8 % (43.0-81.0); RDW COEFFICIENT OF VARIATION 13.6 (11.5-15.0); RED BLOOD CELL COUNT(AUTO) 4.91 MIL/uL (4.0-5.2); WHITE BLOOD COUNT (AUTO) 8.2 K/uL (4.3-11.0)
[2017-06-15 15:53] LABS: CARBON DIOXIDE 22 mmol/L (21-32); CHLORIDE 105 mmol/L (98-107); CREATININE 0.9 mg/dL (0.6-1.3); GLUCOSE 71 mg/dL (74-106); SODIUM SERUM 137 mmol/L (136-145); UREA NITROGEN, BLOOD 19 mg/dL (7-18)
--- NOTE | 2017-06-15 16:57 | NUR ---
KATHERINE KLEIN AND ERNIE BROTHERS ATTEMPTED TO INSERT NG TUBE PER DR. CORTES'S ORDER UNSUCCESSFULLY. RESISTANCE NOTED. DR. CORTES INFORMED. NO NEW ORDERS RECEIVED.
[2017-06-15 17:00] VITALS: BP 143/106
--- NOTE | 2017-06-15 17:12 | NUR ---
PATIENT'S LFA IV DISLODGED WITH THE TIP INTACT. NEW 24 G IV STARTED ON L HAND
--- NOTE | 2017-06-15 17:16 | NUR ---
PATIENT REMOVED THE IV. TIP INTACT. KATHERINE KLEIN ATTEMPTED TO INSERT NEW IV CATHETER UNSUCCESSFULLY. WILL RE-ATTEMPT.
--- NOTE | 2017-06-15 17:21 | NUR ---
NG STILL NOT AVAILABLE. UNABLE TO ADMINISTER COLACE.
--- NOTE | 2017-06-15 17:36 | NUR ---
ATTEMPTED TO INSERT IV UNSUCCESSFULLY.
--- NOTE | 2017-06-15 18:02 | NUR ---
DENEEN KLEIN WAS ABLE TO START A NEW 24 G IV ON LFA.
[2017-06-15] MEDS: PANTOPRAZOLE 40 MG VIAL IV SCH (18:18)
--- NOTE | 2017-06-15 18:29 | NUR ---
RECEIVED TELEPHONE ORDER FROM DR CORTES FOR BILATERAL SOFT RESTRAINS. READ BACK AND VERIFIED.
--- NOTE | 2017-06-15 18:35 | NUR ---
MS RN CLOSING NOTE PATIENT IS AWAKE WITH EYES OPEN. DOES NOT RESPOND TO VERBAL COMMANDS. LOOKS AT RN WHEN TALKED TO AND SAYS "NO". DOES NOT FOLLOW COMMANDS. FACE SYMMETRICAL. BUMP NOTED ON RIGHT SIDE OF THE FACE. CHEST RISING EQUALLY/BILATERALLY. SPO2 94% ON ROOM AIR. PATIENT IS IN IN BED. BED IS LOCKED, IN LOWEST POSITION, SITE RAILS UP X3. NO S/S OF PAIN/DISCOMFORT. PATIENT IS IN BILATERAL SOFT WRIST RESTRAINS PER DR CORTES'S ORDER. REPOSITIONED FOR COMFORT/FUNCTIONAL ALIGNMENT OF THE LIMBS. MRI PENDING IN THE AM. WILL ENDORSE TO THE MEDIA TECHNICIAN NORSE FOR MEAGAN.
--- NOTE | 2017-06-15 18:51 | NUR ---
RECEIVED A PHONE CALL FROM RADIOLOGIST DR FONTANEZ. PER TELEPHONE REPORT PATIENT HAS AN EVIDENCE OF LEFT FRONTAL LOBE ACUTE INFARCT WITH NO EVIDENCE OF HEMORRHAGE. DR CORTES INFORMED. DR ORONA INFORMED. NO NEW ORDERS RECEIVED.
--- NOTE | 2017-06-15 19:20 | NUR ---
MS RN OPENING NOTE RECEIVED PATIENT IN BED SLEEPING, EASILY AROUSED TO VERBAL AND TACTILE STIMULI RESPONDS WITH EYE OPENING. DOES NOT FOLLOW COMMANDS. NO FACIAL ASYMMETRY NOTED, BUMP ON THE RIGHT CHEEK. RESPIRATIONS EVEN AND UNLABORED, IN NO APPARENT DISTRESS OR DISCOMFORT AT THIS TIME. ON ROOM AIR TOLERATING WELL. PATIENT WITH SOFT WRIST RESTRAINTS, ORDERED BY DR CORTES DURING THE AM SHIFT PATIENT PULLS OUT TUBINGS. GOOD CIRCULATION IN HANDS, WARM AND PINK, CAP REFILL <3 SECONDS. PATIENT WITH LEFT FA 24G IV LINE WITH FLUIDS RUNNING AT 75 ML/HR. SAFETY MEASURES IN PLACE BED IN LOW LOCKED POSITION, SIDE RAILS UP X3, CALL LIGHT WITHIN EASY REACH. WILL REPOSITION AND KEEP COMFORTABLE AND CONTINUE TO MONITOR.
[2017-06-15 20:00] VITALS: BP 139/83
[2017-06-15 20:25] LABS: PLATELET COUNT (AUTO) 138 /CMM (150-450)
[2017-06-15] MEDS: ATORVASTATIN 10 MG TABLET PO SCH (21:31)
[2017-06-15] MEDS: ENOXAPARIN SODIUM 40 MG/0.4 ML DISP.SYRIN SQ SCH (21:32)
--- NOTE | 2017-06-16 03:00 | NUR ---
PATIENT'S IV SITE GOT OCCLUDED AND STARTED LEAKING. DUE TO PATIENT BEING SO HARD STICK LISA RETAIL LOSS PREVENTION OFFICER PLACED THE NEW IV 22G ON THE LEFT FOOT. MSG WAS SENT TO DR. CORTES TO NOTIFY AND OBTAIN ORDER.
[2017-06-16] MEDS: IV NS 0.9% 1,000 ML IV PRN (05:49)
--- NOTE | 2017-06-16 07:15 | NUR ---
MS RN CLOSING NOTE PATIENT IN BED SLEEPING, EASILY AROUSED TO VERBAL AND TACTILE STIMULI RESPONDS WITH EYE OPENING. DOES NOT FOLLOW COMMANDS. NO FACIAL ASYMMETRY NOTED, SLIGHT BUMP ON THE RIGHT CHEEK. RESPIRATIONS EVEN AND UNLABORED, IN NO APPARENT DISTRESS OR DISCOMFORT AT THIS TIME. ON ROOM AIR TOLERATING WELL. PATIENT WITH SOFT WRIST RESTRAINTS, ORDERED BY DR CORTES DURING THE AM SHIFT PATIENT PULLS OUT TUBINGS. GOOD CIRCULATION IN HANDS, WARM AND PINK, CAP REFILL <3 SECONDS. PATIENT WAS KEPT CLEAN AND COMFORTABLE TURNED AND REPOSITIONED, CIRCULATION WAS CHECKED PER PROTOCOL PATIENT WITH LEFT FOOT 24G IV WITH FLUIDS RUNNING AT 75ML/HR, DR. CORTES WAS NOTIFIED TO OBTAIN ORDER. SAFETY MEASURES IN PLACE BED IN LOW LOCKED POSITION, SIDE RAILS UP X3, CALL LIGHT WITHIN EASY REACH. WILL ENDORSE TO AM NURSE FOR MEAGAN.
--- NOTE | 2017-06-16 07:20 | NUR ---
RN NOTES PATIENT AWAKE, BUT NON-VERBAL AT THIS TIME, NO SOB OR DISTRESS NOTED. NO FACIAL GRIMACING NOTED. ON ROOM AIR TOLERATING WELL. IV ON RIGHT FOOT #22 INTACT AND PATENT NO REDNESS OR SWELLING NOTED, IVF ONGOING AND TOLERATING WELL, CALL LIGHT WITHIN REACH, SAFETY MEASURES IN PLACED, WILL CONTINUE TO MONITOR.
[2017-06-16 08:00] VITALS: BP 143/88
[2017-06-16] MEDS: ASPIRIN EC 81 MG TABLET.DR PO SCH (08:12)
[2017-06-16] MEDS: FOLIC ACID 1 MG TABLET PO SCH (08:13)
[2017-06-16] MEDS: DOCUSATE SODIUM 100 MG CAPSULE PO SCH (08:13)
[2017-06-16] MEDS: DIGOXIN 0.125 MG TABLET PO SCH (08:13)
--- NOTE | 2017-06-16 08:50 | NUR ---
RN NOTES PATIENT SEEN BY DR. CORTES, AWARE OF FOOT IV INSERTION. GAVE VERBAL ORDER, ORDER NOTED AND CARRIED OUT. [facility] PENDING, WILL FOLLOW UP.
[2017-06-16] MEDS: Z GUARD REMEDY 2 OZ OINT TP SCH (08:52)
--- NOTE | 2017-06-16 10:55 | NUR ---
RN NOTES PATIENT TEACHING RE: STROKE GIVEN TO PATIENT, HANDBOOK PROVIDED AND EXPLAINED, PATIENT UNABLE TO VERBALIZE IF SHE UNDERSTOOD, SWALLOW EVAL COMPLETED AND PATIENT PLACED ON A MECHANICAL SOFT, PHYSICAL THERAPY EVAL ALSO DONE, PATIENT ABLE TO SIT AT EDGE OF THE BED, THEN LEANED BACK ON THE BED, PATIENT IS MAX ASSIST WITH 2 PEOPLE, PATIENT HAS EPISODES OF AGITATION TOWARD THE END OF EVAL. NEEDS ATTENDED, WILL CONTINUE TO MONITOR. INFORMED DR. CORTES RE: COMPLETION OF EVAL. AWAITING FOR ORDERS.
--- NOTE | 2017-06-16 14:00 | NUR ---
RN NOTES PATIENT A/OX1, CONFUSED, GAVE REPORT TO [facility] AT [facility] RE: DISCHARGE INSTRUCTIONS AND STROKE EDUCATION. PATIENT IS NOW ON MECHANICAL SOFT DIET FINELY CHOPPED, PATIENT ATE 75% OF LUNCH. NO S/SX OF ASPIRATION OBSERVED. PIV REMOVED ON RIGHT FOOD, APPLIED PRESSURE AND GAUZE. PATIENT COMPLETED ST EVAL AND PT EVAL, EMT CAME, REPORT GIVEN AND PAPERWORKS, ALONG WITH BELONGINGS. PATIENT LEFT THE FACILITY VIA GURNEY, IN NO DISTRESS.
== END 2017-06-16 14:00 | DRG 64 ==
LOC: ER 13:31 → TELE 15:07 → MED 06-14 10:03
PROVIDERS: ADMIT Legal Medicine; ATTEND Legal Medicine
DX: I63.9 Cerebral infarction, unspecified (principal); G93.40 Encephalopathy, unspecified; J69.0 Pneumonitis due to inhalation of food and vomit; I48.91 Unspecified atrial fibrillation; R56.9 Unspecified convulsions; F03.90 Unspecified dementia, unspecified severity, without behavioral disturbance, psychotic disturbance, mood disturbance, and anxiety; E86.0 Dehydration; E78.5 Hyperlipidemia, unspecified; F41.9 Anxiety disorder, unspecified; N39.0 Urinary tract infection, site not specified; I10 Essential (primary) hypertension; K21.9 Gastro-esophageal reflux disease without esophagitis; Z79.82 Long term (current) use of aspirin; Z79.899 Other long term (current) drug therapy; M19.90 Unspecified osteoarthritis, unspecified site; I25.10 Atherosclerotic heart disease of native coronary artery without angina pectoris; I65.22 Occlusion and stenosis of left carotid artery; Z86.73 Personal history of transient ischemic attack (TIA), and cerebral infarction without residual deficits
CPT/HCPCS: 36415; 70450-TC; 70551-TC; 71045-TC; 80048-TC; 80061-TC; 80162-TC; 81000-TC; 82962-TC; 84484-TC; 85025-TC; 85730-TC; 87081-TC; 87086-TC; 87186-TC; 92611-TC; 93307-TC; 93880-TC; A4606; C9113; J1650; J7030; J7040; J7050; Q9967; Z7610

== ENCOUNTER 2018-04-27 13:31 | Emergency (ER) | payer MEDICARE, MEDICAID ==
[~2018-04-27] VITALS: Ht 162.6 cm; Wt 59.9 kg
[~2018-04-27 13:31] MED LIST changes: -BUSP5TAB3 PO; -CLON0.5T12 PO; -LORA-259 PO; +LORA0.5T PO; -LOSA25TA13 PO; -QUET25TA PO
--- NOTE | 2018-04-27 13:41 | NUR ---
CALLED DR CORTES'S OFFICE FOR A DR TO . EPITAXIAL REACTOR OPERATOR WILL PAGE HIM
[2018-04-27] MEDS ORDERED: RISP0.2515 PO (13:44)
[2018-04-27] MEDS ORDERED: DIGO125T PO (13:44)
[2018-04-27] MEDS ORDERED: OMEP20CA10 PO (13:44)
[2018-04-27] MEDS ORDERED: ENALAPRILAT DIHYD. (2.5MG/ML) 1.25 MG/ML VIAL IV ONE ×2 (14:43→15:43)
[2018-04-27 14:53] LABS: BASOPHILS % (AUTO) 0.6 % (0.0-2.0); EOSINOPHILS % (AUTO) 2.6 % (0.0-6.0); HEMATOCRIT 50 % (33-45); HEMOGLOBIN 16.3 g/dL (11.5-14.8); LYMPHOCYTES # (AUTO) 2.6 /CMM (0.8-4.8); MEAN CORPUSCULAR HGB CONC 33 g/dl (31.0-36.0); MEAN CORPUSCULAR VOLUME 104 fL (82-100); MONOCYTES # (AUTO) 0.7 /CMM (0.1-1.30); NEUTROPHILS # (AUTO) 4.3 /CMM (1.8-8.9); NEUTROPHILS % (AUTO) 54.8 % (43.0-81.0); PLATELET COUNT (AUTO) 134 /CMM (150-450); RED BLOOD CELL COUNT(AUTO) 4.83 MIL/uL (4.0-5.2); WHITE BLOOD COUNT (AUTO) 7.9 K/uL (4.3-11.0)
[2018-04-27] MEDS: ENALAPRILAT INJ (1.25 MG/ML) 1.25 MG/ML VIAL IV PRN ×2 (14:53→16:03)
[2018-04-27 15:02] LABS: CARBON DIOXIDE 29 mmol/L (21-32); CHLORIDE 114 mmol/L (98-107); CREATININE 0.9 mg/dL (0.6-1.3); GLUCOSE 87 mg/dL (74-106); POTASSIUM 4.1 mmol/L (3.5-5.1); SODIUM SERUM 147 mmol/L (136-145); UREA NITROGEN, BLOOD 19 mg/dL (7-18)
[2018-04-27 15:08] LABS: ALANINE AMINOTRANSFERASE 13 U/L (12-78); ALBUMIN 3.3 g/dL (3.4-5.0); ALKALINE PHOSPHATASE 107 U/L (46-116); ASPARTATE AMINOTRANSFERASE 19 U/L (15-37); BILIRUBIN,DIRECT 0.1 mg/dL (0.0-0.2); BILIRUBIN,TOTAL 0.4 mg/dL (0.2-1.0)
--- NOTE | 2018-04-27 15:28 | NUR ---
BIB RA, C/O ELEVATED BLOOD PRESSURE AT BOARD AND CARE, PT NON VERBAL COMFORTABLE, FOLLOWS SIMPLE
--- NOTE | 2018-04-27 15:51 | NUR ---
MATTHEW CALLED FOR A BLS SR. LOGISTICS ANALYST. ETA [id number] TRIP #[id number]
[2018-04-27] MEDS ORDERED: ENALAPRILAT INJ (1.25 MG/ML) 1.25 MG/ML VIAL IV PRN (16:00)
--- NOTE | 2018-04-27 16:40 | NUR ---
Patient discharged to home in stable condition. Written and verbal after care instructions given. Patient verbalizes understanding of instruction.IV removed. Catheter intact and site benign. Pressure and 4x4 applied to site. No bleeding noted.
[2018-04-27] MEDS ORDERED: hydrALAZINE HCL IV 20 MG VIAL IV ONE (17:00)
[2018-04-27] MEDS ORDERED: hydrALAZINE HCL IV 20 MG VIAL ONE (17:41)
--- NOTE | 2018-04-27 17:47 | NUR ---
2ND DOSE VASOTEC 1.25MG GIVEN AT 1600
[2018-04-27 19:23] VITALS: BP 168/88
== END 2018-04-27 19:25 ==
LOC: ER 13:31
DX: I10 Essential (primary) hypertension (principal); F03.90 Unspecified dementia, unspecified severity, without behavioral disturbance, psychotic disturbance, mood disturbance, and anxiety; R56.9 Unspecified convulsions; I48.91 Unspecified atrial fibrillation; K21.9 Gastro-esophageal reflux disease without esophagitis; F32.9 Major depressive disorder, single episode, unspecified; F41.9 Anxiety disorder, unspecified; E86.0 Dehydration; Z86.73 Personal history of transient ischemic attack (TIA), and cerebral infarction without residual deficits; Z79.82 Long term (current) use of aspirin
CPT/HCPCS: 36415; 71045; 80048; 80076; 84484; 85025; 93005; 96374; 96375; 96376; 99284; A4606; J0360; J3490 ×2

== ENCOUNTER 2018-08-24 14:28 | Inpatient (IN) | payer MEDICARE, MEDICAID ==
[~2018-08-24] VITALS: Ht 165.1 cm; Wt 59.0 kg
[~2018-08-24 14:28] MED LIST changes: -CARV6.25 PO; -DOCU-141 PO; -FAMO40TA7 PO; +OMEP20CA10 PO; +RISP0.2515 PO; -RISP0.5T20 PO
--- NOTE | 2018-08-24 14:30 | NUR ---
PT BIB PA FROM SNF TO ER 15 W/ A C/O WOUND TO THE RLE.
--- NOTE | 2018-08-24 14:43 | NUR ---
DR PRADO IS AT THE BEDSIDE.
[2018-08-24] MEDS ORDERED: MEROPENEM 1 G in IV NS 0.9% 100 ML IV ONE (15:00)
--- NOTE | 2018-08-24 15:08 | NUR ---
CALLED NURSING SUP. FOR MS BED
--- NOTE | 2018-08-24 15:20 | NUR ---
CHILDREN'S AIDE IS AT THE BEDSIDE.
[2018-08-24 15:38] LABS: BASOPHILS # (AUTO) 0.1 /CMM (0.0-0.2); HEMOGLOBIN 15.9 g/dL (11.5-14.8); MEAN CORPUSCULAR VOLUME 102 fL (82-100)
[2018-08-24 15:43] LABS: BASOPHILS % (AUTO) 0.8 % (0.0-2.0); EOSINOPHILS % (AUTO) 2.5 % (0.0-6.0); HEMATOCRIT 48 % (33-45); LYMPHOCYTES # (AUTO) 2.3 /CMM (0.8-4.8); LYMPHOCYTES % (AUTO) 25.5 % (20.0-44.0); MEAN CORPUSCULAR HGB CONC 33 g/dl (31.0-36.0); MONOCYTES # (AUTO) 0.9 /CMM (0.1-1.30); MONOCYTES % (AUTO) 9.9 % (2.0-12.0); NEUTROPHILS # (AUTO) 5.6 /CMM (1.8-8.9); NEUTROPHILS % (AUTO) 61.3 % (43.0-81.0); PLATELET COUNT (AUTO) 142 /CMM (150-450); RED BLOOD CELL COUNT(AUTO) 4.69 MIL/uL (4.0-5.2); WHITE BLOOD COUNT (AUTO) 9.2 K/uL (4.3-11.0)
[2018-08-24 15:53] LABS: ALANINE AMINOTRANSFERASE 15 U/L (12-78); ALBUMIN 3.2 g/dL (3.4-5.0); ALKALINE PHOSPHATASE 105 U/L (46-116); ASPARTATE AMINOTRANSFERASE 19 U/L (15-37); BILIRUBIN,DIRECT 0.1 mg/dL (0.0-0.2); BILIRUBIN,TOTAL 0.4 mg/dL (0.2-1.0); CALCIUM, SERUM 8.6 mg/dL (8.5-10.1); CARBON DIOXIDE 27 mmol/L (21-32); CHLORIDE 109 mmol/L (98-107); GLUCOSE 99 mg/dL (74-106); POTASSIUM 4.6 mmol/L (3.5-5.1); SODIUM SERUM 143 mmol/L (136-145); TOTAL PROTEIN, SERUM 6.6 g/dL (6.4-8.2); UREA NITROGEN, BLOOD 19 mg/dL (7-18)
--- NOTE | 2018-08-24 16:16 | NUR ---
MS 201
--- NOTE | 2018-08-24 16:33 | NUR ---
RENZO MCMAHAN, [employer] SUPERVISOR
--- NOTE | 2018-08-24 16:33 | NUR ---
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
--- NOTE | 2018-08-24 17:14 | NUR ---
PT APPEARS TO BE RESTING COMFORTABLY. PT'S BP IS ELEVATED 162/101. MD AWARE. NO NEW ORDERS.
--- NOTE | 2018-08-24 17:23 | NUR ---
REPORT GIVEN TO ERNIE OLEA
--- NOTE | 2018-08-24 18:11 | NUR ---
MS TEXTILES SALES REPRESENTATIVE NOTES Received patient from ER @1805 for Cellulitis on Right malleolus and dehydration. IV access on right hand: patent and intact. Photos on bilateral lower extremities taken. Kept patient clean, dry and comfortable. Assisted to change patient to hospital gown. Patient is awake, non-verbal. Unable to provide history or medical information. Patient came from [facility]. Safety measures in place. NKA. Continue IVF and antibiotic treatment. Will endorse to oncoming shift nurse.
[2018-08-24] MEDS: IV NS 0.9% 1,000 ML IV PRN (18:50)
[2018-08-24] MEDS ORDERED: MAG HYDROX/AL HYDROX/SIMETH 30 ML UDC PO PRN (19:00)
[2018-08-24] MEDS ORDERED: ONDANSETRON HCL/PF 4 MG/2 ML VIAL IVP PRN (19:00)
[2018-08-24] MEDS ORDERED: ACETAMINOPHEN 325 MG TABLET PO PRN (19:00)
[2018-08-24] MEDS ORDERED: HYDROCODONE/APAP 5/325MG 1 EACH TABLET PO PRN (19:00)
[2018-08-24] MEDS ORDERED: MAGNESIUM HYDROXIDE 30 ML UDC PO PRN (19:00)
[2018-08-24] MEDS ORDERED: FEE PK DOSING 1 MIN EA MC ONE (19:02)
[2018-08-24] MEDS ORDERED: PIPERACILLIN /TAZOBACTAM 3.375 G in IV D5W 50 ML IV ONE (19:30)
[2018-08-24] MEDS: hydrALAZINE HCL IV 20 MG VIAL IV PRN (19:48)
--- NOTE | 2018-08-24 19:50 | NUR ---
MS RN NOTES: BP NOTED ELEVATED AT 195/123 HR 92. HYDRALAZINE WAS GIVEN IV. WILL RECHECK BLOOD PRESSURE AND CONTINUE TO MONITOR.
[2018-08-24] MEDS ORDERED: VANCOMYCIN 1 GM in IV D5W 250 ML IV ONE (20:00)
[2018-08-24 20:16] VITALS: BP 195/123
[2018-08-24 20:48] VITALS: BP 161/109
--- NOTE | 2018-08-24 20:55 | NUR ---
MS RN NOTES: DID NURSING SWALLOW SCREEN. PT ABLE TO SWALLOW WITHOUT COUGHING AND DROOLING. PT ALSO ABLE TO SIP WITH STRAW WITHOUT ISSUES. HOB ELEVATED AT ALL TIMES.
--- NOTE | 2018-08-24 20:57 | NUR ---
MS RN NOTES: PT APPEARS TO BE IN PAIN. VITAL SIGNS ARE ELEVATED AND PT MAKING SOME INCOMPREHENSIBLE SOUNDS. PT WAS ADMINISTERED NORCO 5 PO. WILL CONTINUE TO MONITOR PT.
[2018-08-24] MEDS: ATORVASTATIN 10 MG TABLET PO SCH (21:05)
[2018-08-24] MEDS: risperiDONE 0.25 MG TABLET PO SCH (21:06)
[2018-08-24 22:22] VITALS: BP 127/89
[2018-08-25] MEDS: PIPERACILLIN /TAZOBACTAM 2.25 G in IV D5W 50 ML IV SCH ×4 (00:13→17:34)
--- NOTE | 2018-08-25 01:58 | NUR ---
MS KLEIN NOTES: URINE SAMPLE COLLECTED AND PLACED IN REFRIGERATOR.
[2018-08-25 06:19] LABS: APPEARANCE,URINE CLOUDY (CLEAR); BILIRUBIN,URINE NEGATIVE (NEGATIVE); BLOOD, URINE NEGATIVE Ery/uL (NEGATIVE); COLOR,URINE YELLOW (YELLOW); KETONES,URINE NEGATIVE (NEGATIVE); LEUKOCYTE ESTERASE ,URINE TRACE (NEGATIVE); NITRITE, URINE NEGATIVE (NEGATIVE); PROTEIN,URINE NEGATIVE (NEGATIVE); UGLUCOSE NEGATIVE (NEGATIVE); UROBILINOGEN,URINE 0.2 EU/dL (0.2)
--- NOTE | 2018-08-25 06:19 | NUR ---
MS RN NOTES: SUPERVISOR CHASSIS ASSEMBLY SAYS SHE WILL SEND ANOTHER PERSON PT IS HARD STICK.
[2018-08-25 06:30] LABS: BACTERIA,URINE Few /HPF (None Seen); RBC,URINE 0-2 /HPF (0-2); SQUAMOUS EPITHELIAL CELL,UR Many /HPF (None Seen); WBC,URINE 21-50 /HPF (0-3)
--- NOTE | 2018-08-25 06:42 | NUR ---
MS RN CLOSING NOTES: ALL NEEDS WERE ATTENDED AND ANTICIPATED FOR. PT KEPT CLEAN, DRY, AND COMFORTABLE. PT TURNED AND REPOSITIONED Q2HRS. PT VERY LIMITED IN SPEAKING. AT FIRST, PT HAS BEEN APHASIC BUT WAS ABLE TO SAY WORDS LIKE "YEAH." IV REMAINS INTACT AND IS BEING INFUSED WITH IV NS AT 75ML/HR. BED ALARM ACTIVATED. BED KEPT IN LOW, LOCKED POSITION, AND SIDE RAILS X 2UP. WILL ENDORSE TO AM NURSE FOR MEAGAN.
[2018-08-25 08:00] VITALS: BP 160/80
--- NOTE | 2018-08-25 08:00 | NUR ---
MS ERNIE AM NOTES Received patient alert and confused.On bedrest.With IV access on right hand with IVF of NS at 75 ml/hr infusing well: patent and intact. Kept patient clean, dry and comfortable.Patient is awake, non-verbal. Safety measures in place. Continue IVF and antibiotic treatment.Able to eat 100 %breakfast. A feeder.Tolerated well.
[2018-08-25] MEDS: PANTOPRAZOLE 40 MG TABLET.DR PO SCH (09:27)
[2018-08-25] MEDS: FOLIC ACID 1 MG TABLET PO SCH (09:27)
[2018-08-25] MEDS: ASPIRIN EC 81 MG TABLET.DR PO SCH (09:28)
[2018-08-25] MEDS: LACTOBACILLUS RHAMNOSUS GG 1 EACH CAP.SPRINK PO SCH ×2 (09:28→17:34)
[2018-08-25] MEDS: LORAZEPAM 0.5 MG TABLET PO SCH ×2 (09:28→17:34)
[2018-08-25] MEDS: HYDROCODONE/APAP 10/325MG 1 EA TABLET PO PRN (09:40)
[2018-08-25 11:47] LABS: CALCIUM, SERUM 8.4 mg/dL (8.5-10.1); CARBON DIOXIDE 28 mmol/L (21-32); CHLORIDE 106 mmol/L (98-107); GLUCOSE 108 mg/dL (74-106); MAGNESIUM 1.5 mg/dL (1.8-2.4); PHOSPHORUS 3.9 mg/dL (2.5-4.9); POTASSIUM 3.8 mmol/L (3.5-5.1); SODIUM SERUM 142 mmol/L (136-145); UREA NITROGEN, BLOOD 12 mg/dL (7-18)
[2018-08-25 12:28] LABS: BASOPHILS # (AUTO) 0.1 /CMM (0.0-0.2); BASOPHILS % (AUTO) 0.6 % (0.0-2.0); EOSINOPHILS % (AUTO) 2.7 % (0.0-6.0); HEMATOCRIT 49 % (33-45); HEMOGLOBIN 16.3 g/dL (11.5-14.8); LYMPHOCYTES # (AUTO) 1.6 /CMM (0.8-4.8); LYMPHOCYTES % (AUTO) 18.7 % (20.0-44.0); MEAN CORPUSCULAR HGB CONC 33 g/dl (31.0-36.0); MEAN CORPUSCULAR VOLUME 101 fL (82-100); MONOCYTES # (AUTO) 0.7 /CMM (0.1-1.30); MONOCYTES % (AUTO) 8.5 % (2.0-12.0); NEUTROPHILS # (AUTO) 5.8 /CMM (1.8-8.9); NEUTROPHILS % (AUTO) 69.5 % (43.0-81.0); PLATELET COUNT (AUTO) 151 /CMM (150-450); RED BLOOD CELL COUNT(AUTO) 4.82 MIL/uL (4.0-5.2); WHITE BLOOD COUNT (AUTO) 8.4 K/uL (4.3-11.0)
[2018-08-25] MEDS: DIGOXIN 0.125 MG TABLET PO SCH (12:43)
[2018-08-25 13:37] LABS: LYMPHOCYTES % (MANUAL) 20 % (16-48); MONOCYTES % (MANUAL) 6 % (0-11.0); NEUTROPHILS % (MANUAL) 74 (42-76)
[2018-08-25] MEDS: VANCOMYCIN 0.75 GM in IV D5W 250 ML IV SCH (14:27)
[2018-08-25] MEDS ORDERED: Magnesium 1GM/D5W 100ML PREMIX 100 ML IV SCH (15:00)
[2018-08-25 16:00] VITALS: BP 123/67
[2018-08-25] MEDS: IV NS 0.9% 1,000 ML IV PRN (17:45)
--- NOTE | 2018-08-25 19:25 | NUR ---
RN OPEN NOTES RECEIVED PATIENT RESTING COMFORTABLY IN BED, EASILY AROUSABLE. A/O X1. NON-VERBAL. NO SIGNS OF DISTRESS OR DISCOMFORT. BREATHING EVEN AND UNLABORED. IV ACCESS IN R HAND AND ELENI MIDLINE WITH NS INFUSING, PATENT AND INTACT, NO SIGNS OF REDNESS OR INFILTRATION. BED IN LOW LOCKED POSITION WITH SIDE RAILS X2. CALL LIGHT WITHIN REACH. WILL CONTINUE TO MONITOR.
[2018-08-25 20:10] VITALS: BP 110/76
[2018-08-25] MEDS: CEFTRIAXONE 1 G in IV D5W 50 ML IV SCH (21:17)
[2018-08-25] MEDS: ATORVASTATIN 10 MG TABLET PO SCH (21:18)
[2018-08-25] MEDS: risperiDONE 0.25 MG TABLET PO SCH (21:18)
[2018-08-26 07:19] LABS: CALCIUM, SERUM 8.3 mg/dL (8.5-10.1); CARBON DIOXIDE 25 mmol/L (21-32); CHLORIDE 107 mmol/L (98-107); CREATININE 0.9 mg/dL (0.6-1.3); GLUCOSE 85 mg/dL (74-106); POTASSIUM 3.8 mmol/L (3.5-5.1); SODIUM SERUM 140 mmol/L (136-145); UREA NITROGEN, BLOOD 12 mg/dL (7-18)
--- NOTE | 2018-08-26 07:34 | NUR ---
RN OPEN NOTES PATIENT RESTING COMFORTABLY IN BED, EASILY AROUSABLE. A/O X1. NON-VERBAL. NO SIGNS OF DISTRESS OR DISCOMFORT. BREATHING EVEN AND UNLABORED. IV ACCESS IN R HAND AND ELENI MIDLINE WITH NS INFUSING, PATENT AND INTACT, NO SIGNS OF REDNESS OR INFILTRATION. ALL NEEDS MET. NO SIGNIFICANT CHANGES THROUGH THE NIGHT. PATIENT KEPT CLEAN DRY AND COMFORTABLE. REPOSITIONED PATIENT Q2H. BED IN LOW LOCKED POSITION WITH SIDE RAILS X2. CALL LIGHT WITHIN REACH. ENDORSED TO AM SHIFT FOR MEAGAN. Addendum: 08/26/18 at 0736 by VIDAL TSAI RN CLOSING NOTES
[2018-08-26 08:00] VITALS: BP 164/102
--- NOTE | 2018-08-26 08:00 | NUR ---
MS ERNIE AM NOTES Received patient alert and confused.On bedrest.With IV access on right hand and ELENI midline with IVF of NS at 75 ml/hr infusing well: patent and intact. Kept patient clean, dry and comfortable.Patient is awake, non-verbal. Safety measures in place. Continue IVF and antibiotic treatment.Able to eat 100 %breakfast. A feeder.Fed with aspiration precautions. Tolerated well.Turned every two hrs.Elevated heels with pillows.Will monitor.
[2018-08-26] MEDS: LORAZEPAM 0.5 MG TABLET PO SCH ×2 (08:37→17:41)
[2018-08-26] MEDS: ASPIRIN EC 81 MG TABLET.DR PO SCH (08:37)
[2018-08-26] MEDS: LACTOBACILLUS RHAMNOSUS GG 1 EACH CAP.SPRINK PO SCH ×2 (08:37→17:41)
[2018-08-26] MEDS: PANTOPRAZOLE 40 MG TABLET.DR PO SCH (08:37)
[2018-08-26] MEDS: FOLIC ACID 1 MG TABLET PO SCH (08:38)
[2018-08-26] MEDS: VANCOMYCIN 0.75 GM in IV D5W 250 ML IV SCH (08:40)
[2018-08-26] MEDS: NEOMY SULF/BACITRAC ZN/POLY 15 GM TUBE TP SCH (08:42)
[2018-08-26] MEDS: IV NS 0.9% 1,000 ML IV PRN (08:46)
--- NOTE | 2018-08-26 10:29 | NUR ---
WOUND CARE CONSULT WOUND CARE RECEIVED CONSULT FOR RIGHT LATERAL MALLEOLUS OPEN WOUND AND CELLULITIS. WOUND CARE WILL DEFER CONSULT AND TREATMENT PLANS TO PLASTIC SURGICAL TEAM INCLUDING DPRama FITCH WHO ARE ALL CURRENTLY FOLLOWING THIS PATIENT. PATIENT WITH JOSE M AT 13, ALL PRESSURE ULCER PREVENTION MEASURES ARE NOTED TO BE IN PLACE AT THIS TIME. WILL SEE PRN.
[2018-08-26] MEDS: HYDROCODONE/APAP 10/325MG 1 EA TABLET PO PRN ×2 (11:27→17:42)
[2018-08-26] MEDS: DIGOXIN 0.125 MG TABLET PO SCH (12:14)
[2018-08-26 16:00] VITALS: BP 126/81
--- NOTE | 2018-08-26 19:10 | NUR ---
PT RESTING IN BED COMFORTABLY WITH NO S/S OF PAIN /DISTRESS.TURNED EVERY TWO HRS.
[2018-08-26 20:00] VITALS: BP 128/94
[2018-08-26] MEDS: CEFTRIAXONE 1 G in IV D5W 50 ML IV SCH (21:04)
[2018-08-26] MEDS: ATORVASTATIN 10 MG TABLET PO SCH (21:39)
[2018-08-26] MEDS: risperiDONE 0.25 MG TABLET PO SCH (21:39)
[2018-08-27] MEDS: IV NS 0.9% 1,000 ML IV PRN ×2 (01:59→16:23)
[2018-08-27] MEDS: VANCOMYCIN 0.75 GM in IV D5W 250 ML IV SCH ×2 (02:00→20:17)
[2018-08-27 06:42] LABS: CALCIUM, SERUM 7.8 mg/dL (8.5-10.1); CARBON DIOXIDE 25 mmol/L (21-32); CHLORIDE 109 mmol/L (98-107); CREATININE 0.9 mg/dL (0.6-1.3); GLUCOSE 76 mg/dL (74-106); POTASSIUM 3.8 mmol/L (3.5-5.1); SODIUM SERUM 141 mmol/L (136-145); UREA NITROGEN, BLOOD 12 mg/dL (7-18)
--- NOTE | 2018-08-27 06:50 | NUR ---
MS RN NOTES PT SLEEPING. NON VERBAL. RESPONSIVE TO TACTILE STIMULI. NOT IN ANY DISTRESS. NO SOB NOTED. NO S/SX OF ANY PAIN OR DISCOMFORT AT THIS TIME. WITH IVF INFUSING WELL. AM CARE DONE. MONITORED ACCORDINGLY. CALL LIGHT WITHIN REACH. BED IN LOWEST POSITION. SR UP X 3 WITH BED ALARM ON FOR SAFETY. WILL ENDORSE TO NEXT SHIFT.
[2018-08-27 08:00] VITALS: BP 154/98
[2018-08-27] MEDS: ASPIRIN EC 81 MG TABLET.DR PO SCH (08:44)
[2018-08-27] MEDS: FOLIC ACID 1 MG TABLET PO SCH (08:44)
[2018-08-27] MEDS: LACTOBACILLUS RHAMNOSUS GG 1 EACH CAP.SPRINK PO SCH ×2 (08:44→18:10)
[2018-08-27] MEDS: LORAZEPAM 0.5 MG TABLET PO SCH ×2 (08:44→18:10)
[2018-08-27] MEDS: HYDROCODONE/APAP 10/325MG 1 EA TABLET PO PRN (08:45)
[2018-08-27] MEDS: NEOMY SULF/BACITRAC ZN/POLY 15 GM TUBE TP SCH (08:46)
[2018-08-27] MEDS: PANTOPRAZOLE 40 MG TABLET.DR PO SCH (08:48)
[2018-08-27] MEDS: DIGOXIN 0.125 MG TABLET PO SCH (13:39)
[2018-08-27 16:00] VITALS: BP 147/101
--- NOTE | 2018-08-27 16:26 | NUR ---
PT WAS VISITED BY DR DEJON TERAN,SCALLOP CUTTER MACHINE IN TRAINING OF [facility] CELL# AND [facility] [phone]. DR ASHFORD STATES THAT SHE IS THE ONE WHO SHOULD MAKE DECISION FOR PT IF WHERE SHE WILL BE TRANSFERRED AND HER PREFERABLE PLACE WHERE THE PT WILL BE TRANSFERRED WILL BE IN [facility] HEADED BY HUDSON HANSEN. NOTIFIED SHERRELL C[place]AND AND OUR PRESSING MACHINE OPERATOR AND MADE THEM AWARE.
--- NOTE | 2018-08-27 19:30 | NUR ---
MS/RN OPENING NOTES PT RECEIVED AWAKE, RESTING COMFORTABLY IN BED. NON VERBAL. UNABLE TO MAKE NEEDS KNOWN. ON ROOM AIR, BREATHING EVEN AND UNLABORED. NO S/S OF SOB OR PAIN NOTED. IN NO ACUTE RESPIRATORY DISTRESS. IV TO RIGHT HAND PATENT AND INTACT, ELENI MIDLINE PATENT AND INTACT RUNNING IVF ORDERED. HOB ELEVATED. SIDE RAILS UPX3, BED ALARM ON FOR SAFETY. WILL CONTINUE TO MONITOR
[2018-08-27 20:00] VITALS: BP 149/84
[2018-08-27 20:13] VITALS: BP 149/84
[2018-08-27] MEDS: risperiDONE 0.25 MG TABLET PO SCH (21:18)
[2018-08-27] MEDS: ATORVASTATIN 10 MG TABLET PO SCH (21:19)
[2018-08-27] MEDS: CEFTRIAXONE 1 G in IV D5W 50 ML IV SCH (21:19)
--- NOTE | 2018-08-28 06:36 | NUR ---
MS/RN CLOSING NOTES PT ASLEEP, OPENS EYES SPONTANEOUSLY. NON VERBAL. UNABLE TO MAKE NEEDS KNOWN. ON ROOM AIR, BREATHING EVEN AND UNLABORED. NO S/S OF SOB OR PAIN NOTED. IN NO ACUTE RESPIRATORY DISTRESS. RIGHT HAND PIV SALINE LOCKED, ELENI MIDLINE PATENT AND INTACT RUNNING IVF ORDERED.NO SIGNIFICANT CHANGES OVERNIGHT. HOB ELEVATED THROUGHOUT SHIFT. SIDE RAILS UPX3, BED ALARM ON FOR SAFETY. TURNED/REPOSITIONED Q2H. HEELS OFFLOADED. WILL ENDORSE TO DAY SHIFT RN MEAGAN.
[2018-08-28 06:41] LABS: CARBON DIOXIDE 24 mmol/L (21-32); CHLORIDE 108 mmol/L (98-107); CREATININE 0.9 mg/dL (0.6-1.3); GLUCOSE 88 mg/dL (74-106); POTASSIUM 3.9 mmol/L (3.5-5.1); SODIUM SERUM 140 mmol/L (136-145); UREA NITROGEN, BLOOD 12 mg/dL (7-18)
--- NOTE | 2018-08-28 07:28 | NUR ---
MS/RN OPENING NOTE PATIENT IN BED IN STABLE CONDITION. A/O X 1, NON VERBAL. NO SIGNS OF ACUTE DISTRESS. NO COMPLAIN OF PAIN OR DISCOMFORT. ALL NEEDS ATTENDED TO. CALL LIGHT WITHIN REACH. WILL CONTINUE TO MONITOR TO ENSURE SAFETY.
[2018-08-28 08:00] VITALS: BP 153/107
[2018-08-28] MEDS: LACTOBACILLUS RHAMNOSUS GG 1 EACH CAP.SPRINK PO SCH ×2 (08:22→16:15)
[2018-08-28] MEDS: ASPIRIN EC 81 MG TABLET.DR PO SCH (08:22)
[2018-08-28] MEDS: FOLIC ACID 1 MG TABLET PO SCH (08:22)
[2018-08-28] MEDS: IV NS 0.9% 1,000 ML IV PRN (08:22)
[2018-08-28] MEDS: LORAZEPAM 0.5 MG TABLET PO SCH ×2 (08:22→16:15)
[2018-08-28] MEDS: PANTOPRAZOLE 40 MG TABLET.DR PO SCH (08:22)
[2018-08-28] MEDS: NEOMY SULF/BACITRAC ZN/POLY 15 GM TUBE TP SCH (08:23)
[2018-08-28] MEDS: VANCOMYCIN 0.75 GM in IV D5W 250 ML IV SCH (13:02)
[2018-08-28] MEDS: DIGOXIN 0.125 MG TABLET PO SCH (13:02)
[2018-08-28 17:14] VITALS: BP 171/98
[2018-08-28] MEDS: hydrALAZINE HCL IV 20 MG VIAL IV PRN (17:14)
--- NOTE | 2018-08-28 17:30 | NUR ---
MS/RN RECHECK BP POST HYDRALAZINE 149/90, 92
--- NOTE | 2018-08-28 17:35 | NUR ---
MS/EXCHANGE MECHANIC PATIENT DISCHARGE TO [facility] IN STABLE CONDITION. A/O X 1, NON VERBAL. NO SIGNS OF ACUTE DISTRESS. NO COMPLAIN OF PAIN OR DISCOMFORT. DISCHARGE EDUCATION AND TEACHINGS PROVIDED, UNABLE TO COMPREHEND. REPORT GIVEN TO ERNIE MIX FROM SNF. ALL NEEDS ATTENDED TO. NAME BAND AND IV LINE REMOVED. LEFT IN STABLE CONDITION VIA GURNEY ACCOMPANIED BY 2 MORTGAGE CLOSING CLERK.
== END 2018-08-28 17:45 | DRG 602 ==
LOC: ER 14:28 → MEDSG2 16:17
PROVIDERS: ADMIT Nurse Practitioner Acute Care; ATTEND Nurse Practitioner Acute Care
PROC: 05H633Z Insertion of Infusion Device into Left Subclavian Vein, Percutaneous Approach (ICD-10-PCS; principal; 2018-08-25)
PROC: B547ZZA Ultrasonography of Left Subclavian Vein, Guidance (ICD-10-PCS; 2018-08-25)
DX: L03.115 Cellulitis of right lower limb (principal); R53.2 Functional quadriplegia; G93.41 Metabolic encephalopathy; I50.33 Acute on chronic diastolic (congestive) heart failure; E44.0 Moderate protein-calorie malnutrition; N39.0 Urinary tract infection, site not specified; D68.59 Other primary thrombophilia; I11.0 Hypertensive heart disease with heart failure; I25.10 Atherosclerotic heart disease of native coronary artery without angina pectoris; K21.9 Gastro-esophageal reflux disease without esophagitis; I48.2 Chronic atrial fibrillation; F03.90 Unspecified dementia, unspecified severity, without behavioral disturbance, psychotic disturbance, mood disturbance, and anxiety; E86.0 Dehydration; Z87.440 Personal history of urinary (tract) infections; Z87.11 Personal history of peptic ulcer disease; E88.09 Other disorders of plasma-protein metabolism, not elsewhere classified; M62.50 Muscle wasting and atrophy, not elsewhere classified, unspecified site; M19.90 Unspecified osteoarthritis, unspecified site; L90.5 Scar conditions and fibrosis of skin; S40.812A Abrasion of left upper arm, initial encounter; X58.XXXA Exposure to other specified factors, initial encounter; Y93.9 Activity, unspecified; S91.001A Unspecified open wound, right ankle, initial encounter; R79.89 Other specified abnormal findings of blood chemistry; Y92.89 Other specified places as the place of occurrence of the external cause
CPT/HCPCS: 36415; 71045-TC; 73610-TC; 80048-TC; 80076-TC; 80162-TC; 80202-TC; 81000-TC; 83605-TC; 83735-TC; 84100-TC; 84484-TC; 85025-TC; 85652-TC; 85730-TC; 87040-TC; 87081-TC; 87086-TC; 92526; 92611-TC; A4216; A6402; A6403; G0378; J0360; J0696; J2185; J2543; J3370; J3475; J7030; J7060

== ENCOUNTER 2018-11-18 11:10 | Emergency (ER) | payer MEDICARE, MEDICAID ==
[~2018-11-18] VITALS: Ht 167.6 cm; Wt 60.3 kg
[~2018-11-18 11:10] MED LIST changes: -DONE10TA44 PO; -MEMA10TA PO; -OMEP20CA10 PO
--- NOTE | 2018-11-18 11:16 | NUR ---
PT [id number], FROM [facility], S/P FALL FROM WHEELCHAIR, LAC ON THE R EYE AND RIGHT UPPER LIP. NO BLEEDING NOTED. PT AAOX1, NO DISTRESS NOTED, PLACED ON A MONITOR. WILL CONTINUE TO MONITOR
[2018-11-18] MEDS ORDERED: MULT1TAB73 PO (11:23)
[2018-11-18] MEDS ORDERED: ZINC220C8 PO (11:23)
[2018-11-18] MEDS ORDERED: ASCO250T5 PO (11:23)
[2018-11-18] MEDS ORDERED: IBUPROFEN 400 MG TABLET ONE (11:51)
[2018-11-18] MEDS ORDERED: IBUPROFEN 400 MG TABLET PO ONE (12:00)
--- NOTE | 2018-11-18 12:08 | NUR ---
STERISTRIPS APPLIED ON RIGHT EYELID
--- NOTE | 2018-11-18 13:07 | NUR ---
PATIENT REMOVED HER STERI-STRIPS
--- NOTE | 2018-11-18 13:25 | NUR ---
CALLED [facility] FOR BLS TRANSPORT. ETA 25 MIN TRIP# [phone]
--- NOTE | 2018-11-18 14:06 | NUR ---
REPORT GIVEN TO DUMP MOTORMAN COPIES OF CT'S GIVEN TO EMT. BAND-AID APPLIED ON RIGHT EYELID TO PREVENT PATIENT FROM PICKING ON THE SKIN. Patient discharged to [facility] in stable condition. Written and verbal after care instructions given to emt. Patient verbalizes understanding of instruction. Addendum: 11/18/18 at 1407 by ROALCANCES CORRECTION: EMT VERBALIZES UNDERSTANDING.
[2018-11-18 14:19] VITALS: BP 106/57
== END 2018-11-18 14:19 ==
LOC: ER 11:11
DX: S00.83XA Contusion of other part of head, initial encounter (principal); S00.11XA Contusion of right eyelid and periocular area, initial encounter; F03.90 Unspecified dementia, unspecified severity, without behavioral disturbance, psychotic disturbance, mood disturbance, and anxiety; R56.9 Unspecified convulsions; I10 Essential (primary) hypertension; I48.91 Unspecified atrial fibrillation; K21.9 Gastro-esophageal reflux disease without esophagitis; F32.9 Major depressive disorder, single episode, unspecified; F41.9 Anxiety disorder, unspecified; Z79.82 Long term (current) use of aspirin; W05.0XXA Fall from non-moving wheelchair, initial encounter; Y93.89 Activity, other specified; Y92.89 Other specified places as the place of occurrence of the external cause; Y99.8 Other external cause status
CPT/HCPCS: 70450-TC; 70486-TC; 71045-TC; 72125-TC